=== PATIENT | male | born 1960 | race African-American/Black ===

== ENCOUNTER 2017-06-19 14:46 | Inpatient (IN) | payer MEDICARE, OTHER ==
[2017-06-19] MEDS: METHYLPREDNISOLONE 125 MG INJ IV (15:00)
[2017-06-19] MEDS: LEVALBUTEROL (NEB) 1.25 MG/0.5 ML AMP INH (15:01)
[2017-06-19] MEDS: IPRATROPIUM (NEB) 0.5 MG/2.5 ML AMP INH (15:01)
[2017-06-19 15:45] LABS: ADD MAN DIFF? NO
[2017-06-19 15:49] LABS: BASOPHILS % 0.7 % (0.0-2.0); EOSINOPHILS # 0.3 10^3/ul (0.0-0.5); EOSINOPHILS % 4.2 % (0.0-7.0); HEMOGLOBIN 11.4 g/dl (14.0-18.0); LYMPHOCYTES # 0.6 10^3/ul (0.8-2.9); LYMPHOCYTES % 10.7 % (15.0-51.0); MEAN CORPUSCULAR HEMOGLOBIN 30.6 pg (29.0-33.0); MEAN CORPUSCULAR HGB CONC 32.6 g/dl (32.0-37.0); MEAN CORPUSCULAR VOLUME 93.8 fl (82.0-101.0); MEAN PLATELET VOLUME 12.3 fl (7.4-10.4); MONOCYTE # 0.4 10^3/ul (0.3-0.9); MONOCYTES % 7.2 % (0.0-11.0); NEUTROPHIL # 4.6 10^3/ul (1.6-7.5); PLATELET COUNT 130 10^3/UL (140-415); RED BLOOD COUNT 3.73 10^6/ul (4.70-6.10); RED CELL DISTRIBUTION WIDTH 18.5 % (11.5-14.5)
[2017-06-19 16:06] LABS: INR 1.04; PROTIME 13.7 Sec (11.9-14.9); PT RATIO 1.1
[2017-06-19 16:07] LABS: PARTIAL THROMBOPLASTIN TIME 38.2 Sec (25.0-35.0)
[2017-06-19 16:59] LABS: LACTIC ACID 1.2 mmol/L (0.5-2.0)
[2017-06-19 17:03] LABS: ALANINE AMINOTRANSFERASE 35 IU/L (13-69); ALBUMIN/GLOBULIN RATIO 1.11; ALKALINE PHOSPHATASE 96 IU/L (42-121); ANION GAP 25 (8-16); ASPARTATE AMINO TRANSFERASE 21 IU/L (15-46); BILIRUBIN,INDIRECT 0.2 mg/dl (0-1.1); BILIRUBIN,TOTAL 0.2 mg/dl (0.2-1.3); BLOOD UREA NITROGEN 54 mg/dl (7-20); CALCIUM 7.9 mg/dl (8.4-10.2); CARBON DIOXIDE 24 mmol/L (21-31); CHLORIDE 97 mmol/L (97-110); CREATININE 11.13 mg/dl (0.61-1.24); GLUCOSE 92 mg/dl (70-220); POTASSIUM 5.1 mmol/L (3.5-5.1); SODIUM 141 mmol/L (135-144); TOTAL PROTEIN 7.6 g/dl (6.1-8.1)
[2017-06-19 17:12] LABS: TROPONIN-I 0.081 ng/ml (0.00-0.12)
[2017-06-19] MEDS ORDERED: GLUCOSE GEL 15 GRAM TUBE BUCCAL (19:30)
[2017-06-19] MEDS ORDERED: DEXTROSE 50% 50 ML SYRINGE IV ×2 (19:30)
[2017-06-19] MEDS ORDERED: GLUCOSE GEL 15 GRAM TUBE PO ×2 (19:30)
[2017-06-19] MEDS ORDERED: GLUCAGON 1 MG INJ IM (19:30)
[2017-06-19] MEDS: hydrALAzine 20 MG INJ IV (19:33)
[2017-06-19 19:34] LABS: LACTIC ACID 1.7 mmol/L (0.5-2.0)
[2017-06-19] MEDS: HYDROCODONE/APAP (10/325) TAB PO (19:45)
[2017-06-19] MEDS ORDERED: INSULIN GLARGINE [LANtus] 3 ML PEN SC (21:00)
[2017-06-19] MEDS: LEVALBUTEROL (NEB) 0.63 MG/3 ML AMP HHN (21:10)
[2017-06-19 21:44] LABS: LACTIC ACID 2.3 mmol/L (0.5-2.0)
[2017-06-19] MEDS: QUETIAPINE 100 MG TAB PO (22:07)
[2017-06-19] MEDS: MIRTAZAPINE 15 MG TAB PO (22:07)
[2017-06-19] MEDS: GABAPENTIN 100 MG CAP PO (22:07)
[2017-06-19] MEDS: INSULIN GLARGINE [LANtus] 3 ML PEN SC (23:38)
[2017-06-20 00:58] LABS: HEPATITIS B SURFACE ANTIGEN NEGATIVE (NEGATIVE)
[2017-06-20] MEDS: ACCU-CHEK XX (02:00)
[2017-06-20] MEDS: HEPARIN 1000 UNITS/ML 10 ML INJ CATHETER (04:43)
[2017-06-20] MEDS: LEVOTHYROXINE 150 MCG TAB PO (06:39)
[2017-06-20] MEDS: INSULIN ASPART [NOVOLOG] 3 ML PEN SC ×4 (07:55→20:58)
[2017-06-20] MEDS: GABAPENTIN 100 MG CAP PO ×3 (10:08→20:54)
[2017-06-20] MEDS: traMADol 50 MG TAB PO (10:09)
[2017-06-20] MEDS: HYDROCODONE/APAP (5/325) TAB PO (15:45)
[2017-06-20] MEDS: QUETIAPINE 100 MG TAB PO (20:54)
[2017-06-20] MEDS: MIRTAZAPINE 15 MG TAB PO (20:54)
[2017-06-20] MEDS: INSULIN GLARGINE [LANtus] 3 ML PEN SC (21:10)
[2017-06-20] MEDS: HYDROCODONE/APAP (10/325) TAB PO (22:29)
[2017-06-20] MEDS: ZOLPIDEM 5 MG TAB PO (23:00)
[2017-06-21] MEDS: ACCU-CHEK XX (02:00)
[2017-06-21] MEDS: LEVOTHYROXINE 150 MCG TAB PO (06:08)
[2017-06-21] MEDS: INSULIN ASPART [NOVOLOG] 3 ML PEN SC ×2 (07:55→11:50)
[2017-06-21] MEDS: QUETIAPINE 100 MG TAB PO (09:08)
[2017-06-21] MEDS: GABAPENTIN 100 MG CAP PO ×2 (09:09→14:15)
[2017-06-21] MEDS: HYDROCODONE/APAP (10/325) TAB PO (14:15)
== END 2017-06-21 17:18 | disposition home or self-care (01) | DRG 291 ==
LOC: TEL 20:14 → E/R 14:46 → TEL 18:07
PROVIDERS: Internal Medicine
PROC: 5A1D70Z Performance of Urinary Filtration, Intermittent, Less than 6 Hours Per Day (ICD-10-PCS; principal; 2017-06-19)
DX: I13.2 Hypertensive heart and chronic kidney disease with heart failure and with stage 5 chronic kidney disease, or end stage renal disease (principal); I50.23 Acute on chronic systolic (congestive) heart failure; J96.21 Acute and chronic respiratory failure with hypoxia; N18.6 End stage renal disease; J44.1 Chronic obstructive pulmonary disease with (acute) exacerbation; E11.22 Type 2 diabetes mellitus with diabetic chronic kidney disease; I42.9 Cardiomyopathy, unspecified; E11.40 Type 2 diabetes mellitus with diabetic neuropathy, unspecified; Z79.4 Long term (current) use of insulin; Z99.2 Dependence on renal dialysis; I25.10 Atherosclerotic heart disease of native coronary artery without angina pectoris; D64.9 Anemia, unspecified; E11.649 Type 2 diabetes mellitus with hypoglycemia without coma; Z91.15 Patient's noncompliance with renal dialysis
CPT/HCPCS: 36415; 71045; 80053; 82962; 83605; 84484; 85025; 85610; 85730; 87040; 87340; 90935; 93005; 94640; 94644; 96374; 96375; 99291-25

== ENCOUNTER 2017-08-20 15:00 | Observation (INO) | payer MEDICARE, OTHER ==
[2017-08-20] MEDS: ASPIRIN 81 MG TAB PO (16:21)
[2017-08-20] MEDS: FUROSEMIDE 40 MG INJ IV (16:21)
[2017-08-20] MEDS: NITROGLYCERIN 2% 1 GM OINT PKT TD (16:22)
[2017-08-20] MEDS ORDERED: NITROGLYCERIN (SL) 0.4 MG TAB SL ×2 (16:30→19:00)
[2017-08-20 16:46] LABS: ADD MAN DIFF? NO
[2017-08-20 17:41] LABS: ANION GAP 27 (8-16); BLOOD UREA NITROGEN 67 mg/dl (7-20); CALCIUM 7.4 mg/dl (8.4-10.2); CARBON DIOXIDE 22 mmol/L (21-31); CHLORIDE 95 mmol/L (97-110); GLUCOSE 88 mg/dl (70-220); POTASSIUM 5.1 mmol/L (3.5-5.1); SODIUM 139 mmol/L (135-144)
[2017-08-20 17:48] LABS: CREATININE 13.82 mg/dl (0.61-1.24)
[2017-08-20 17:53] LABS: TROPONIN-I 0.032 ng/ml (0.00-0.12)
[2017-08-20 18:13] LABS: WHITE BLOOD COUNT 5.2 10^3/ul (4.8-10.8)
[2017-08-20 18:13] LABS: ABNORMAL IP MESSAGE 1; BASOPHILS % 0.6 % (0.0-2.0); EOSINOPHILS # 0.2 10^3/ul (0.0-0.5); EOSINOPHILS % 4.2 % (0.0-7.0); HEMATOCRIT 26.4 % (42.0-52.0); HEMOGLOBIN 8.5 g/dl (14.0-18.0); LYMPHOCYTES # 0.5 10^3/ul (0.8-2.9); LYMPHOCYTES % 8.8 % (15.0-51.0); MEAN CORPUSCULAR HEMOGLOBIN 29.1 pg (29.0-33.0); MEAN CORPUSCULAR HGB CONC 32.2 g/dl (32.0-37.0); MEAN CORPUSCULAR VOLUME 90.4 fl (82.0-101.0); MEAN PLATELET VOLUME 11.2 fl (7.4-10.4); MONOCYTE # 0.3 10^3/ul (0.3-0.9); MONOCYTES % 6.5 % (0.0-11.0); NEUTROPHIL # 4.2 10^3/ul (1.6-7.5); NEUTROPHILS % 79.5 % (39.0-77.0); PLATELET COUNT 182 10^3/UL (140-415); POSITIVE DIFF @See below; RED BLOOD COUNT 2.92 10^6/ul (4.70-6.10); RED CELL DISTRIBUTION WIDTH 17.2 % (11.5-14.5)
[2017-08-20] MEDS ORDERED: ACETAMINOPHEN 325 MG TAB PO ×2 (18:30→19:00)
[2017-08-20] MEDS ORDERED: ONDANSETRON 4 MG INJ IV ×2 (18:30→19:00)
[2017-08-20] MEDS ORDERED: DIPHENHYDRAMINE 50 MG CAP PO (19:00)
[2017-08-20] MEDS ORDERED: MAGNESIUM HYDROXIDE 30ML CUP PO (19:00)
[2017-08-20] MEDS ORDERED: LORAZEPAM 2 MG INJ IV (19:00)
[2017-08-20] MEDS ORDERED: NA PHOSPHATE/BIPHOS 133 ML ENEMA PR (19:00)
[2017-08-20] MEDS ORDERED: DOCUSATE SODIUM 100 MG CAP PO (19:00)
[2017-08-20] MEDS ORDERED: NACL 0.9% 3 ML SYG IV (19:00)
[2017-08-20] MEDS ORDERED: hydrALAzine 20 MG INJ IV (19:00)
[2017-08-20 19:09] LABS: INR 1.33; PROTIME 16.7 Sec (11.9-14.9); PT RATIO 1.3
[2017-08-20 19:10] LABS: PARTIAL THROMBOPLASTIN TIME 52.1 Sec (25.0-35.0)
[2017-08-20] MEDS: ONDANSETRON 4 MG INJ IV (19:25)
[2017-08-20] MEDS: morphine 4 MG/ML VIAL IV (19:26)
[2017-08-20] MEDS ORDERED: GLUCOSE GEL 15 GRAM TUBE BUCCAL (19:30)
[2017-08-20] MEDS ORDERED: DEXTROSE 50% 50 ML SYRINGE IV ×2 (19:30)
[2017-08-20] MEDS ORDERED: GLUCOSE GEL 15 GRAM TUBE PO ×2 (19:30)
[2017-08-20] MEDS ORDERED: GLUCAGON 1 MG INJ IM (19:30)
[2017-08-20 19:34] LABS: FREE T4 (FREE THYROXINE) 0.57 ng/dl (0.64-1.79)
[2017-08-20] MEDS: morphine 2 MG INJ IV (22:14)
[2017-08-20] MEDS ORDERED: APIXABAN 5 MG TABLET PO (23:00)
[2017-08-20] MEDS: HEPARIN 5,000 UNIT/0.5 ML VIAL SC (23:00)
[2017-08-20] MEDS ORDERED: ALBUMIN HUMAN 25% 100 ML IV (23:00)
[2017-08-20] MEDS: MIRTAZAPINE 15 MG TAB PO (23:00)
[2017-08-20] MEDS: QUETIAPINE 100 MG TAB PO (23:00)
[2017-08-21 00:48] LABS: CREATINE KINASE 163 IU/L (23-200)
[2017-08-21] MEDS: INSULIN ASPART [NOVOLOG] 3 ML PEN SC ×6 (00:48→20:22)
[2017-08-21 01:02] LABS: CK INDEX 1.7; TROPONIN-I 0.051 ng/ml (0.00-0.12)
[2017-08-21 01:04] LABS: CK-MB 2.82 ng/ml (0.0-2.4)
[2017-08-21 01:20] LABS: HEPATITIS B SURFACE ANTIGEN NEGATIVE (NEGATIVE)
[2017-08-21] MEDS: ACCU-CHEK XX (02:00)
[2017-08-21] MEDS: HEPARIN 1000 UNITS/ML 10 ML INJ CATHETER (02:14)
[2017-08-21] MEDS: LEVOTHYROXINE 88 MCG TAB PO (08:08)
[2017-08-21] MEDS: PANTOPRAZOLE (EC) 40 MG TAB PO (08:09)
[2017-08-21] MEDS: FUROSEMIDE 40 MG INJ IV (08:45)
[2017-08-21] MEDS: CINACALCET 30 MG TAB PO (08:45)
[2017-08-21] MEDS: QUETIAPINE 25 MG TAB PO (08:46)
[2017-08-21] MEDS: ASPIRIN 81 MG TAB PO (08:46)
[2017-08-21] MEDS: CHOLECALCIFEROL 1,000 UNIT TAB PO (08:46)
[2017-08-21] MEDS: HEPARIN 5,000 UNIT/0.5 ML VIAL SC ×2 (08:48→20:22)
[2017-08-21 09:37] LABS: ADD MAN DIFF? NO
[2017-08-21 09:46] LABS: WHITE BLOOD COUNT 4.6 10^3/ul (4.8-10.8)
[2017-08-21 09:46] LABS: ABNORMAL IP MESSAGE 1; BASOPHILS % 0.9 % (0.0-2.0); EOSINOPHILS # 0.3 10^3/ul (0.0-0.5); EOSINOPHILS % 5.5 % (0.0-7.0); HEMATOCRIT 25.4 % (42.0-52.0); HEMOGLOBIN 8.1 g/dl (14.0-18.0); LYMPHOCYTES # 0.6 10^3/ul (0.8-2.9); LYMPHOCYTES % 12.1 % (15.0-51.0); MEAN CORPUSCULAR HEMOGLOBIN 28.9 pg (29.0-33.0); MEAN CORPUSCULAR HGB CONC 31.9 g/dl (32.0-37.0); MEAN CORPUSCULAR VOLUME 90.7 fl (82.0-101.0); MEAN PLATELET VOLUME 11.7 fl (7.4-10.4); MONOCYTE # 0.4 10^3/ul (0.3-0.9); MONOCYTES % 9.2 % (0.0-11.0); NEUTROPHIL # 3.3 10^3/ul (1.6-7.5); NEUTROPHILS % 72.1 % (39.0-77.0); PLATELET COUNT 156 10^3/UL (140-415); POSITIVE DIFF @See below; RED CELL DISTRIBUTION WIDTH 17.2 % (11.5-14.5)
[2017-08-21 09:57] LABS: HEMOGLOBIN A1C 5.7 % (0-5.9)
[2017-08-21 10:08] LABS: CREATINE KINASE 142 IU/L (23-200)
[2017-08-21 10:16] LABS: CK INDEX 1.6; TROPONIN-I 0.064 ng/ml (0.00-0.12)
[2017-08-21 10:17] LABS: CK-MB 2.33 ng/ml (0.0-2.4)
[2017-08-21 10:21] LABS: CHOLESTEROL 102 mg/dl (100-200)
[2017-08-21 10:21] LABS: CHOL/HDL RATIO 2.9 RATIO; HDL CHOLESTEROL 35 mg/dl (28-71); LDL CHOLESTEROL,CALCULATED 56 mg/dl; TRIGLYCERIDES 57 mg/dl (0-149)
[2017-08-21 11:00] LABS: ANION GAP 24 (8-16); BLOOD UREA NITROGEN 48 mg/dl (7-20); CALCIUM 7.2 mg/dl (8.4-10.2); CARBON DIOXIDE 21 mmol/L (21-31); CHLORIDE 101 mmol/L (97-110); CREATININE 10.33 mg/dl (0.61-1.24); GLUCOSE 75 mg/dl (70-220); MAGNESIUM 1.7 mg/dl (1.7-2.5); PHOSPHORUS 5.8 mg/dl (2.5-4.9); POTASSIUM 4.7 mmol/L (3.5-5.1); SODIUM 141 mmol/L (135-144)
[2017-08-21] MEDS: HYDROCODONE/APAP (5/325) TAB PO ×3 (14:53→15:02)
[2017-08-21] MEDS: morphine 2 MG INJ IV (15:21)
[2017-08-21] MEDS: QUETIAPINE 100 MG TAB PO (20:07)
[2017-08-21] MEDS: MIRTAZAPINE 15 MG TAB PO (20:07)
[2017-08-21] MEDS: morphine LIQ (10 MG/5 ML) CUP PO (20:08)
[2017-08-21] MEDS ORDERED: ALBUTEROL/IPRATROPIUM (NEB) 3 ML AMP HHN (21:30)
[2017-08-21] MEDS: ALBUTEROL/IPRATROPIUM (NEB) 3 ML AMP HHN (21:52)
[2017-08-21] MEDS: traMADol 50 MG TAB PO (22:11)
[2017-08-21] MEDS: ZOLPIDEM 5 MG TAB PO (22:11)
[2017-08-22] MEDS: morphine LIQ (10 MG/5 ML) CUP PO ×2 (00:03→08:28)
[2017-08-22] MEDS: ACCU-CHEK XX (02:00)
[2017-08-22] MEDS: INSULIN ASPART [NOVOLOG] 3 ML PEN SC ×4 (07:30→21:00)
[2017-08-22] MEDS: LEVOTHYROXINE 88 MCG TAB PO (07:40)
[2017-08-22] MEDS: PANTOPRAZOLE (EC) 40 MG TAB PO (07:40)
[2017-08-22] MEDS: QUETIAPINE 25 MG TAB PO (08:23)
[2017-08-22] MEDS: CINACALCET 30 MG TAB PO (08:24)
[2017-08-22] MEDS: CHOLECALCIFEROL 1,000 UNIT TAB PO (08:24)
[2017-08-22] MEDS: ASPIRIN 81 MG TAB PO (08:25)
[2017-08-22] MEDS: FUROSEMIDE 40 MG INJ IV (08:26)
[2017-08-22] MEDS: HEPARIN 5,000 UNIT/0.5 ML VIAL SC ×2 (08:27→21:15)
[2017-08-22 08:56] LABS: ADD MAN DIFF? NO
[2017-08-22 08:59] LABS: BASOPHILS % 0.7 % (0.0-2.0); EOSINOPHILS # 0.3 10^3/ul (0.0-0.5); EOSINOPHILS % 7.8 % (0.0-7.0); HEMATOCRIT 23.9 % (42.0-52.0); HEMOGLOBIN 7.4 g/dl (14.0-18.0); LYMPHOCYTES # 0.7 10^3/ul (0.8-2.9); LYMPHOCYTES % 16.5 % (15.0-51.0); MEAN CORPUSCULAR HEMOGLOBIN 28.5 pg (29.0-33.0); MEAN CORPUSCULAR VOLUME 91.9 fl (82.0-101.0); MEAN PLATELET VOLUME 9.9 fl (7.4-10.4); MONOCYTE # 0.4 10^3/ul (0.3-0.9); MONOCYTES % 9.5 % (0.0-11.0); NEUTROPHIL # 2.7 10^3/ul (1.6-7.5); PLATELET COUNT 133 10^3/UL (140-415); RED CELL DISTRIBUTION WIDTH 17.3 % (11.5-14.5)
[2017-08-22 08:59] LABS: WHITE BLOOD COUNT 4.1 10^3/ul (4.8-10.8)
[2017-08-22 09:20] LABS: ANION GAP 22 (8-16); BLOOD UREA NITROGEN 54 mg/dl (7-20); CALCIUM 6.8 mg/dl (8.4-10.2); CARBON DIOXIDE 23 mmol/L (21-31); CHLORIDE 98 mmol/L (97-110); CREATININE 11.56 mg/dl (0.61-1.24); GLUCOSE 76 mg/dl (70-220); POTASSIUM 5.2 mmol/L (3.5-5.1); SODIUM 138 mmol/L (135-144)
[2017-08-22] MEDS: HEPARIN 1000 UNITS/ML 10 ML INJ CATHETER (15:58)
[2017-08-22 17:01] LABS: IMMEDIATE SPIN CROSSMATCH 1 1
[2017-08-22] MEDS: QUETIAPINE 100 MG TAB PO (21:00)
[2017-08-22] MEDS: MIRTAZAPINE 15 MG TAB PO (21:16)
== END 2017-08-22 23:00 | disposition home or self-care (01) ==
LOC: E/R 15:00 → MS4 18:16
DX: I13.2 Hypertensive heart and chronic kidney disease with heart failure and with stage 5 chronic kidney disease, or end stage renal disease (principal); E11.22 Type 2 diabetes mellitus with diabetic chronic kidney disease; N18.6 End stage renal disease; I50.23 Acute on chronic systolic (congestive) heart failure; Z99.2 Dependence on renal dialysis; Z91.15 Patient's noncompliance with renal dialysis; D63.1 Anemia in chronic kidney disease; E03.9 Hypothyroidism, unspecified
CPT/HCPCS: 36415; 36430; 71045; 80048; 80061; 82550; 82553; 82962; 83036; 83605; 83735; 84100; 84439; 84443; 84484; 85025; 85610; 85730; 86850; 86900; 86901; 86920; 87040; 87340; 90935; 93005; 93306; 94664; 96374; 96375; 97161; 99285-25; G0378

== ENCOUNTER 2017-09-23 20:58 | Inpatient (IN) | payer MEDICARE, OTHER ==
[2017-09-23] MEDS: ASPIRIN 325 MG TAB PO (22:20)
[2017-09-23] MEDS: predniSONE 20 MG TAB PO (22:20)
[2017-09-23] MEDS: KETOROLAC 30 MG INJ IV (22:20)
[2017-09-23] MEDS: SOD CHLORIDE 0.9% 500 ML IV (22:20)
[2017-09-23 22:23] LABS: ADD MAN DIFF? NO
[2017-09-23 22:28] LABS: BASOPHILS % 0.3 % (0.0-2.0); EOSINOPHILS # 0.3 10^3/ul (0.0-0.5); EOSINOPHILS % 3.3 % (0.0-7.0); HEMATOCRIT 24.4 % (42.0-52.0); HEMOGLOBIN 7.8 g/dl (14.0-18.0); LYMPHOCYTES # 0.6 10^3/ul (0.8-2.9); LYMPHOCYTES % 6.6 % (15.0-51.0); MEAN CORPUSCULAR HEMOGLOBIN 28.8 pg (29.0-33.0); MEAN PLATELET VOLUME 11.4 fl (7.4-10.4); MONOCYTE # 0.5 10^3/ul (0.3-0.9); MONOCYTES % 5.4 % (0.0-11.0); NEUTROPHIL # 7.8 10^3/ul (1.6-7.5); NEUTROPHILS % 84.1 % (39.0-77.0); PLATELET COUNT 197 10^3/UL (140-415); RED BLOOD COUNT 2.71 10^6/ul (4.70-6.10); RED CELL DISTRIBUTION WIDTH 17.2 % (11.5-14.5)
[2017-09-23 22:28] LABS: WHITE BLOOD COUNT 9.3 10^3/ul (4.8-10.8)
[2017-09-23 22:44] LABS: ANION GAP 21 (8-16); BLOOD UREA NITROGEN 61 mg/dl (7-20); CALCIUM 7.8 mg/dl (8.4-10.2); CARBON DIOXIDE 26 mmol/L (21-31); CHLORIDE 100 mmol/L (97-110); CREATININE 13.77 mg/dl (0.61-1.24); GLUCOSE 122 mg/dl (70-220); POTASSIUM 4.4 mmol/L (3.5-5.1); SODIUM 143 mmol/L (135-144)
[2017-09-23 22:57] LABS: B-TYPE NATRIURETIC PEPTIDE 23300 PG/ML (0-125)
[2017-09-23] MEDS: IPRATROPIUM (NEB) 0.5 MG/2.5 ML AMP HHN (23:13)
[2017-09-23] MEDS: ALBUTEROL 0.083% (NEB) 2.5 MG/3 ML AMP HHN (23:13)
[2017-09-24] MEDS ORDERED: NACL 0.9% 3 ML SYG IV (01:30)
[2017-09-24] MEDS ORDERED: ACETAMINOPHEN 325 MG TAB PO (01:30)
[2017-09-24] MEDS ORDERED: NITROGLYCERIN (SL) 0.4 MG TAB SL (01:30)
[2017-09-24] MEDS: morphine 2 MG INJ IV ×4 (05:15→20:52)
[2017-09-24 07:52] LABS: ABNORMAL IP MESSAGE 1; ADD MAN DIFF? NO; BASOPHILS % 0.2 % (0.0-2.0); EOSINOPHILS % 0.1 % (0.0-7.0); HEMATOCRIT 25.3 % (42.0-52.0); HEMOGLOBIN 8.1 g/dl (14.0-18.0); LYMPHOCYTES # 0.2 10^3/ul (0.8-2.9); LYMPHOCYTES % 2.1 % (15.0-51.0); MEAN CORPUSCULAR HEMOGLOBIN 28.7 pg (29.0-33.0); MEAN CORPUSCULAR VOLUME 89.7 fl (82.0-101.0); MONOCYTE # 0.1 10^3/ul (0.3-0.9); MONOCYTES % 0.5 % (0.0-11.0); NEUTROPHIL # 9.1 10^3/ul (1.6-7.5); NEUTROPHILS % 96.7 % (39.0-77.0); PLATELET COUNT 195 10^3/UL (140-415); POSITIVE DIFF @See below; RED BLOOD COUNT 2.82 10^6/ul (4.70-6.10)
[2017-09-24 07:52] LABS: WHITE BLOOD COUNT 9.5 10^3/ul (4.8-10.8)
[2017-09-24 08:17] LABS: ALANINE AMINOTRANSFERASE 13 IU/L (13-69); ALBUMIN 3.5 g/dl (3.3-4.9); ALBUMIN/GLOBULIN RATIO 0.83; ALKALINE PHOSPHATASE 110 IU/L (42-121); ANION GAP 24 (8-16); ASPARTATE AMINO TRANSFERASE 15 IU/L (15-46); BLOOD UREA NITROGEN 65 mg/dl (7-20); CALCIUM 7.7 mg/dl (8.4-10.2); CARBON DIOXIDE 23 mmol/L (21-31); CHLORIDE 101 mmol/L (97-110); GLUCOSE 225 mg/dl (70-220); MAGNESIUM 1.7 mg/dl (1.7-2.5); PHOSPHORUS 5.3 mg/dl (2.5-4.9); POTASSIUM 5.7 mmol/L (3.5-5.1); SODIUM 142 mmol/L (135-144); TOTAL PROTEIN 7.7 g/dl (6.1-8.1)
[2017-09-24 08:35] LABS: CREATININE 13.44 mg/dl (0.61-1.24)
[2017-09-24] MEDS: FERROUS SULFATE (EC) 325 MG TAB PO (09:00)
[2017-09-24] MEDS: APIXABAN 5 MG TABLET PO ×2 (09:00→20:51)
[2017-09-24] MEDS: CINACALCET 30 MG TAB PO (09:00)
[2017-09-24] MEDS: LISINOPRIL 5 MG TAB PO (09:00)
[2017-09-24] MEDS: METOPROLOL (XL) 50 MG TAB PO (09:00)
[2017-09-24] MEDS: ASPIRIN 81 MG TAB PO (09:00)
[2017-09-24 09:04] LABS: IRON 33 ug/dl (35-150)
[2017-09-24 09:14] LABS: % IRON SATURATION 17 % SAT (22-52); TOTAL IRON BINDING CAPACITY 192 ug/dl (241-421)
[2017-09-24] MEDS: QUETIAPINE 25 MG TAB PO ×2 (09:32→20:51)
[2017-09-24] MEDS: SOD CHLORIDE 0.9% 250 ML IV* (10:08)
[2017-09-24] MEDS: QUETIAPINE 100 MG TAB PO (10:29)
[2017-09-24] MEDS: LORAZEPAM 2 MG INJ IV (10:29)
[2017-09-24] MEDS ORDERED: HYDROCODONE/APAP (5/325) TAB NGT (10:30)
[2017-09-24 12:10] LABS: HEPATITIS B SURFACE ANTIGEN NEGATIVE (NEGATIVE)
[2017-09-24] MEDS: HEPARIN 1000 UNITS/ML 10 ML INJ CATHETER (14:38)
[2017-09-24] MEDS: EPOETIN 10000 UNITS/1 ML INJ (ESRD) SC (16:38)
[2017-09-24] MEDS: MIRTAZAPINE 15 MG TAB PO (20:51)
[2017-09-24] MEDS ORDERED: QUETIAPINE 100 MG TAB PO (21:00)
[2017-09-24] MEDS: ALBUTEROL 0.083% (NEB) 2.5 MG/3 ML AMP HHN (22:13)
[2017-09-24] MEDS: ALPRAZOLAM 0.5 MG TAB PO (22:29)
[2017-09-25] MEDS: ZOLPIDEM 5 MG TAB PO
[2017-09-25] MEDS: PANTOPRAZOLE (EC) 40 MG TAB PO (06:39)
[2017-09-25] MEDS: LEVOTHYROXINE 88 MCG TAB PO (06:39)
[2017-09-25 07:33] LABS: ADD MAN DIFF? NO
[2017-09-25 07:35] LABS: BASOPHILS % 0.4 % (0.0-2.0); EOSINOPHILS # 0.3 10^3/ul (0.0-0.5); EOSINOPHILS % 2.9 % (0.0-7.0); HEMATOCRIT 24.5 % (42.0-52.0); HEMOGLOBIN 7.9 g/dl (14.0-18.0); LYMPHOCYTES # 0.8 10^3/ul (0.8-2.9); MEAN CORPUSCULAR HEMOGLOBIN 29.2 pg (29.0-33.0); MEAN CORPUSCULAR HGB CONC 32.2 g/dl (32.0-37.0); MEAN CORPUSCULAR VOLUME 90.4 fl (82.0-101.0); MONOCYTE # 0.6 10^3/ul (0.3-0.9); MONOCYTES % 5.9 % (0.0-11.0); NEUTROPHIL # 8.6 10^3/ul (1.6-7.5); NEUTROPHILS % 82.3 % (39.0-77.0); PLATELET COUNT 180 10^3/UL (140-415); RED BLOOD COUNT 2.71 10^6/ul (4.70-6.10); RED CELL DISTRIBUTION WIDTH 17.2 % (11.5-14.5)
[2017-09-25 07:35] LABS: WHITE BLOOD COUNT 10.4 10^3/ul (4.8-10.8)
[2017-09-25 07:55] LABS: ANION GAP 17 (8-16); BLOOD UREA NITROGEN 52 mg/dl (7-20); CARBON DIOXIDE 28 mmol/L (21-31); CHLORIDE 101 mmol/L (97-110); CREATININE 10.27 mg/dl (0.61-1.24); GLUCOSE 96 mg/dl (70-220); POTASSIUM 4.7 mmol/L (3.5-5.1); SODIUM 141 mmol/L (135-144)
[2017-09-25 08:09] LABS: PHOSPHORUS 4.7 mg/dl (2.5-4.9)
[2017-09-25] MEDS ORDERED: QUETIAPINE 25 MG TAB PO (09:00)
[2017-09-25] MEDS: CINACALCET 30 MG TAB PO (09:00)
[2017-09-25] MEDS: FERROUS SULFATE (EC) 325 MG TAB PO (09:00)
[2017-09-25] MEDS: ASPIRIN 81 MG TAB PO (09:00)
[2017-09-25] MEDS: LISINOPRIL 5 MG TAB PO (09:00)
[2017-09-25] MEDS: APIXABAN 5 MG TABLET PO ×2 (09:00→20:13)
[2017-09-25] MEDS: METOPROLOL (XL) 50 MG TAB PO (09:00)
[2017-09-25] MEDS: morphine 2 MG INJ IV (10:05)
[2017-09-25] MEDS: HYDROmorphONE 0.5 MG/0.5 ML SYG IV ×2 (13:08→19:24)
[2017-09-25] MEDS: QUETIAPINE 100 MG TAB PO (15:13)
[2017-09-25] MEDS: HEPARIN 1000 UNITS/ML 10 ML INJ CATHETER (19:12)
[2017-09-25] MEDS: SOD FERRIC GLUC COMPLX 125 MG in SOD CHLORIDE 0.9% 100 ML IVPB (19:23)
[2017-09-25] MEDS: MIRTAZAPINE 15 MG TAB PO (20:13)
[2017-09-25] MEDS: QUETIAPINE 25 MG TAB PO (20:13)
[2017-09-25] MEDS: ONDANSETRON 4 MG INJ IV (21:48)
[2017-09-26] MEDS: ZOLPIDEM 5 MG TAB PO (00:06)
[2017-09-26] MEDS: HYDROmorphONE 0.5 MG/0.5 ML SYG IV ×3 (01:15→13:13)
[2017-09-26] MEDS: LEVOTHYROXINE 88 MCG TAB PO (06:31)
[2017-09-26] MEDS: PANTOPRAZOLE (EC) 40 MG TAB PO (06:32)
[2017-09-26 07:32] LABS: ANION GAP 15 (8-16); BLOOD UREA NITROGEN 33 mg/dl (7-20); CALCIUM 7.8 mg/dl (8.4-10.2); CARBON DIOXIDE 30 mmol/L (21-31); CHLORIDE 101 mmol/L (97-110); CREATININE 7.34 mg/dl (0.61-1.24); GLUCOSE 92 mg/dl (70-220); POTASSIUM 4.9 mmol/L (3.5-5.1); SODIUM 141 mmol/L (135-144)
[2017-09-26 07:32] LABS: PHOSPHORUS 4.9 mg/dl (2.5-4.9)
[2017-09-26] MEDS: ASPIRIN 81 MG TAB PO (08:51)
[2017-09-26] MEDS: METOPROLOL (XL) 50 MG TAB PO (08:51)
[2017-09-26] MEDS: CINACALCET 30 MG TAB PO (08:51)
[2017-09-26] MEDS: LISINOPRIL 5 MG TAB PO (08:52)
[2017-09-26] MEDS: QUETIAPINE 100 MG TAB PO (08:52)
[2017-09-26] MEDS: APIXABAN 5 MG TABLET PO (08:52)
[2017-09-26] MEDS: FERROUS SULFATE (EC) 325 MG TAB PO (08:55)
[2017-09-26] MEDS: EPOETIN 10000 UNITS/1 ML INJ (ESRD) SC (16:28)
[2017-09-26] MEDS: SOD FERRIC GLUC COMPLX 125 MG in SOD CHLORIDE 0.9% 100 ML IVPB (16:28)
== END 2017-09-26 19:30 | disposition home or self-care (01) | DRG 291 ==
LOC: TEL 09-24 00:55 → E/R 20:58
DX: I13.2 Hypertensive heart and chronic kidney disease with heart failure and with stage 5 chronic kidney disease, or end stage renal disease (principal); N18.6 End stage renal disease; I50.43 Acute on chronic combined systolic (congestive) and diastolic (congestive) heart failure; J96.00 Acute respiratory failure, unspecified whether with hypoxia or hypercapnia; J44.1 Chronic obstructive pulmonary disease with (acute) exacerbation; E11.22 Type 2 diabetes mellitus with diabetic chronic kidney disease; Z99.2 Dependence on renal dialysis; Z91.15 Patient's noncompliance with renal dialysis; F17.210 Nicotine dependence, cigarettes, uncomplicated; F41.9 Anxiety disorder, unspecified; D63.1 Anemia in chronic kidney disease; I25.10 Atherosclerotic heart disease of native coronary artery without angina pectoris; D50.9 Iron deficiency anemia, unspecified; E11.40 Type 2 diabetes mellitus with diabetic neuropathy, unspecified; E03.9 Hypothyroidism, unspecified; M25.562 Pain in left knee; E87.5 Hyperkalemia; I42.9 Cardiomyopathy, unspecified; Z79.82 Long term (current) use of aspirin; Z86.718 Personal history of other venous thrombosis and embolism; Z91.81 History of falling
CPT/HCPCS: 36415; 71045; 73562; 73610-RT; 80048; 80053; 82728; 83540; 83735; 83880; 84100; 84484; 85025; 86850; 86900; 86901; 87081; 87340; 90935; 93005; 94644; 94664; 96374; 99291-25

== ENCOUNTER 2017-10-13 08:42 | Emergency (ER) | payer MEDICARE, OTHER ==
[2017-10-13] MEDS: ALBUTEROL 0.5% (NEB) 2.5 MG/0.5 ML AMP INH (09:03)
[2017-10-13] MEDS: IPRATROPIUM (NEB) 0.5 MG/2.5 ML AMP INH (09:03)
[2017-10-13 09:10] LABS: ADD MAN DIFF? NO
[2017-10-13 09:12] LABS: WHITE BLOOD COUNT 8.2 10^3/ul (4.8-10.8)
[2017-10-13 09:12] LABS: BASOPHIL # 0.1 10^3/ul (0.0-0.1); BASOPHILS % 0.7 % (0.0-2.0); EOSINOPHILS # 0.3 10^3/ul (0.0-0.5); EOSINOPHILS % 3.8 % (0.0-7.0); HEMATOCRIT 29.9 % (42.0-52.0); LYMPHOCYTES # 0.9 10^3/ul (0.8-2.9); LYMPHOCYTES % 11.2 % (15.0-51.0); MEAN CORPUSCULAR HEMOGLOBIN 28.8 pg (29.0-33.0); MEAN CORPUSCULAR HGB CONC 30.1 g/dl (32.0-37.0); MEAN CORPUSCULAR VOLUME 95.8 fl (82.0-101.0); MEAN PLATELET VOLUME 12.4 fl (7.4-10.4); MONOCYTE # 0.6 10^3/ul (0.3-0.9); MONOCYTES % 7.4 % (0.0-11.0); NEUTROPHIL # 6.3 10^3/ul (1.6-7.5); NEUTROPHILS % 76.5 % (39.0-77.0); PLATELET COUNT 160 10^3/UL (140-415); RED BLOOD COUNT 3.12 10^6/ul (4.70-6.10); RED CELL DISTRIBUTION WIDTH 16.7 % (11.5-14.5)
[2017-10-13] MEDS: METHYLPREDNISOLONE 125 MG INJ IV (09:12)
[2017-10-13 09:30] LABS: ANION GAP 23 (8-16); BLOOD UREA NITROGEN 36 mg/dl (7-20); CALCIUM 7.3 mg/dl (8.4-10.2); CARBON DIOXIDE 25 mmol/L (21-31); CHLORIDE 99 mmol/L (97-110); CREATININE 10.11 mg/dl (0.61-1.24); GLUCOSE 112 mg/dl (70-220); SODIUM 142 mmol/L (135-144)
[2017-10-13 09:42] LABS: TROPONIN-I 0.047 ng/ml (0.000-0.120)
[2017-10-13] MEDS: morphine 4 MG/ML VIAL IV (09:53)
[2017-10-13 10:41] LABS: B-TYPE NATRIURETIC PEPTIDE 24600 PG/ML (0-125)
== END 2017-10-13 10:17 | disposition home or self-care (01) ==
LOC: E/R 08:42
DX: E11.22 Type 2 diabetes mellitus with diabetic chronic kidney disease (principal); N18.6 End stage renal disease; J81.1 Chronic pulmonary edema; J44.9 Chronic obstructive pulmonary disease, unspecified; I50.9 Heart failure, unspecified; F17.210 Nicotine dependence, cigarettes, uncomplicated; I12.0 Hypertensive chronic kidney disease with stage 5 chronic kidney disease or end stage renal disease; Z79.82 Long term (current) use of aspirin; Z99.2 Dependence on renal dialysis
CPT/HCPCS: 71045; 80048; 83880; 84484; 85025; 93005; 94644; 96374; 96375; 99285-25

== ENCOUNTER 2017-10-26 09:32 | Inpatient (IN) | payer MEDICARE, OTHER ==
[2017-10-26] MEDS ORDERED: NITROGLYCERIN (SL) 0.4 MG TAB SL (10:00)
[2017-10-26 10:02] LABS: ADD MAN DIFF? NO
[2017-10-26 10:07] LABS: ABNORMAL IP MESSAGE 1; BASOPHILS % 0.4 % (0.0-2.0); EOSINOPHILS # 0.2 10^3/ul (0.0-0.5); HEMOGLOBIN 7.6 g/dl (14.0-18.0); LYMPHOCYTES # 0.5 10^3/ul (0.8-2.9); LYMPHOCYTES % 7.3 % (15.0-51.0); MEAN CORPUSCULAR HEMOGLOBIN 28.6 pg (29.0-33.0); MEAN CORPUSCULAR HGB CONC 31.7 g/dl (32.0-37.0); MEAN CORPUSCULAR VOLUME 90.2 fl (82.0-101.0); MEAN PLATELET VOLUME 10.5 fl (7.4-10.4); MONOCYTE # 0.4 10^3/ul (0.3-0.9); MONOCYTES % 5.1 % (0.0-11.0); NEUTROPHIL # 5.9 10^3/ul (1.6-7.5); NEUTROPHILS % 83.8 % (39.0-77.0); PLATELET COUNT 141 10^3/UL (140-415); POSITIVE DIFF @See below; RED BLOOD COUNT 2.66 10^6/ul (4.70-6.10); RED CELL DISTRIBUTION WIDTH 16.6 % (11.5-14.5)
[2017-10-26] MEDS: NITROGLYCERIN 2% 1 GM OINT PKT TD (10:16)
[2017-10-26] MEDS: ASPIRIN 81 MG TAB PO (10:16)
[2017-10-26 10:22] LABS: ANION GAP 25 (8-16); BLOOD UREA NITROGEN 66 mg/dl (7-20); CALCIUM 7.8 mg/dl (8.4-10.2); CARBON DIOXIDE 25 mmol/L (21-31); CHLORIDE 97 mmol/L (97-110); GLUCOSE 98 mg/dl (70-220); POTASSIUM 4.9 mmol/L (3.5-5.1); SODIUM 142 mmol/L (135-144)
[2017-10-26 10:28] LABS: CREATININE 14.89 mg/dl (0.61-1.24)
[2017-10-26 10:33] LABS: TROPONIN-I 0.045 ng/ml (0.000-0.120)
[2017-10-26] MEDS: morphine 4 MG/ML VIAL IV ×2 (11:25→13:16)
[2017-10-26] MEDS ORDERED: ACETAMINOPHEN 325 MG TAB PO (13:00)
[2017-10-26] MEDS ORDERED: ONDANSETRON 4 MG INJ IV (13:00)
[2017-10-26] MEDS ORDERED: NACL 0.9% 3 ML SYG IV (15:00)
[2017-10-26] MEDS: morphine (ER) 15 MG TAB PO ×2 (16:59→22:10)
[2017-10-26 17:49] LABS: CREATINE KINASE 129 IU/L (23-200)
[2017-10-26 17:58] LABS: CK INDEX 2.3; CK-MB 3.03 ng/ml (0.0-2.4)
[2017-10-26] MEDS ORDERED: PENDING SANTYL ORDER FOR WOUND CARE XX (18:00)
[2017-10-26 18:02] LABS: TROPONIN-I 0.041 ng/ml (0.000-0.120)
[2017-10-26] MEDS: QUETIAPINE 100 MG TAB PO (21:00)
[2017-10-26] MEDS: HEPARIN 5,000 UNIT/0.5 ML VIAL SC (21:00)
[2017-10-26] MEDS: MIRTAZAPINE 15 MG TAB PO (21:00)
[2017-10-26] MEDS ORDERED: ALBUMIN HUMAN 25% 100 ML IV (21:30)
[2017-10-26] MEDS ORDERED: SODIUM CHLORIDE 0.9% 1L BAG IV* (21:30)
[2017-10-26 22:13] LABS: HEPATITIS B SURFACE ANTIGEN NEGATIVE (NEGATIVE)
[2017-10-26 23:17] LABS: CREATINE KINASE 133 IU/L (23-200)
[2017-10-26 23:31] LABS: CK INDEX 2.4
[2017-10-26 23:36] LABS: CK-MB 3.24 ng/ml (0.0-2.4)
[2017-10-27] MEDS: HEPARIN 1000 UNITS/ML 10 ML INJ CATHETER (00:43)
[2017-10-27 06:09] LABS: ADD MAN DIFF? NO
[2017-10-27 06:39] LABS: IRON 40 ug/dl (35-150)
[2017-10-27 06:49] LABS: % IRON SATURATION 23 % SAT (22-52); TOTAL IRON BINDING CAPACITY 177 ug/dl (241-421)
[2017-10-27 06:52] LABS: ALANINE AMINOTRANSFERASE 17 IU/L (13-69); ALBUMIN 3.3 g/dl (3.3-4.9); ALKALINE PHOSPHATASE 77 IU/L (42-121); ANION GAP 17 (8-16); ASPARTATE AMINO TRANSFERASE 11 IU/L (15-46); BLOOD UREA NITROGEN 40 mg/dl (7-20); CALCIUM 7.7 mg/dl (8.4-10.2); CARBON DIOXIDE 30 mmol/L (21-31); CHLORIDE 102 mmol/L (97-110); CREATININE 9.79 mg/dl (0.61-1.24); GLUCOSE 94 mg/dl (70-220); POTASSIUM 4.6 mmol/L (3.5-5.1); SODIUM 144 mmol/L (135-144); TOTAL PROTEIN 7.4 g/dl (6.1-8.1)
[2017-10-27 07:00] LABS: HEMOGLOBIN A1C 5.7 % (0-5.9)
[2017-10-27 07:55] LABS: ABNORMAL IP MESSAGE 1; BASOPHILS % 0.5 % (0.0-2.0); EOSINOPHILS # 0.3 10^3/ul (0.0-0.5); EOSINOPHILS % 5.7 % (0.0-7.0); HEMATOCRIT 24.8 % (42.0-52.0); HEMOGLOBIN 7.8 g/dl (14.0-18.0); LYMPHOCYTES # 0.5 10^3/ul (0.8-2.9); LYMPHOCYTES % 8.7 % (15.0-51.0); MEAN CORPUSCULAR HEMOGLOBIN 29.1 pg (29.0-33.0); MEAN CORPUSCULAR HGB CONC 31.5 g/dl (32.0-37.0); MEAN CORPUSCULAR VOLUME 92.5 fl (82.0-101.0); MEAN PLATELET VOLUME 11.4 fl (7.4-10.4); MONOCYTE # 0.5 10^3/ul (0.3-0.9); MONOCYTES % 7.6 % (0.0-11.0); NEUTROPHIL # 4.6 10^3/ul (1.6-7.5); NEUTROPHILS % 77.2 % (39.0-77.0); PLATELET COUNT 152 10^3/UL (140-415); POSITIVE DIFF @See below; RED BLOOD COUNT 2.68 10^6/ul (4.70-6.10); RED CELL DISTRIBUTION WIDTH 16.7 % (11.5-14.5)
[2017-10-27] MEDS: HYDROCODONE/APAP (5/325) TAB PO ×2 (07:59→13:45)
[2017-10-27] MEDS: LEVOTHYROXINE 88 MCG TAB PO (07:59)
[2017-10-27] MEDS: morphine (ER) 15 MG TAB PO (07:59)
[2017-10-27] MEDS: LISINOPRIL 5 MG TAB PO (08:13)
[2017-10-27] MEDS: CHOLECALCIFEROL 1,000 UNIT TAB PO (08:13)
[2017-10-27] MEDS: ASPIRIN 81 MG TAB PO (08:13)
[2017-10-27] MEDS: CINACALCET 30 MG TAB PO (08:14)
[2017-10-27] MEDS: METOPROLOL (XL) 50 MG TAB PO (08:14)
[2017-10-27] MEDS: HEPARIN 5,000 UNIT/0.5 ML VIAL SC ×2 (08:18→21:06)
[2017-10-27] MEDS: morphine 2 MG INJ IV (12:05)
[2017-10-27] MEDS: traMADol 50 MG TAB PO (17:36)
[2017-10-27] MEDS: MIRTAZAPINE 15 MG TAB PO (21:05)
[2017-10-27] MEDS: QUETIAPINE 100 MG TAB PO (21:05)
[2017-10-27] MEDS: ONDANSETRON 4 MG INJ IV (21:05)
[2017-10-28] MEDS: LEVOTHYROXINE 88 MCG TAB PO (08:41)
[2017-10-28] MEDS: CINACALCET 30 MG TAB PO (08:41)
[2017-10-28] MEDS: METOPROLOL (XL) 50 MG TAB PO (08:42)
[2017-10-28] MEDS: CHOLECALCIFEROL 1,000 UNIT TAB PO (08:42)
[2017-10-28] MEDS: LISINOPRIL 5 MG TAB PO (08:42)
[2017-10-28] MEDS: ASPIRIN 81 MG TAB PO (08:43)
[2017-10-28] MEDS: morphine (ER) 15 MG TAB PO ×2 (08:43→20:50)
[2017-10-28] MEDS: HEPARIN 5,000 UNIT/0.5 ML VIAL SC ×2 (08:50→20:44)
[2017-10-28] MEDS: ONDANSETRON 4 MG INJ IV (13:58)
[2017-10-28 18:52] LABS: HEPATITIS B SURFACE ANTIBODY POSITIVE (NEGATIVE)
[2017-10-28] MEDS: HEPARIN 1000 UNITS/ML 10 ML INJ CATHETER (20:18)
[2017-10-28] MEDS: QUETIAPINE 100 MG TAB PO (20:49)
[2017-10-28] MEDS: MIRTAZAPINE 15 MG TAB PO (20:49)
[2017-10-29] MEDS ORDERED: ZOLPIDEM 5 MG TAB PO ×2 (02:13→23:30)
[2017-10-29] MEDS: ZOLPIDEM 5 MG TAB PO ×2 (02:22→23:40)
[2017-10-29] MEDS: CINACALCET 30 MG TAB PO (08:35)
[2017-10-29] MEDS: ASPIRIN 81 MG TAB PO (08:35)
[2017-10-29] MEDS: LEVOTHYROXINE 88 MCG TAB PO (08:35)
[2017-10-29] MEDS: METOPROLOL (XL) 50 MG TAB PO (08:36)
[2017-10-29] MEDS: CHOLECALCIFEROL 1,000 UNIT TAB PO (08:36)
[2017-10-29] MEDS: LISINOPRIL 5 MG TAB PO (08:36)
[2017-10-29] MEDS: morphine (ER) 15 MG TAB PO (08:37)
[2017-10-29] MEDS: HEPARIN 5,000 UNIT/0.5 ML VIAL SC ×2 (08:39→22:34)
[2017-10-29 09:02] LABS: ADD MAN DIFF? NO
[2017-10-29 09:10] LABS: ABNORMAL IP MESSAGE 1; BASOPHILS % 0.7 % (0.0-2.0); EOSINOPHILS # 0.4 10^3/ul (0.0-0.5); EOSINOPHILS % 5.7 % (0.0-7.0); HEMATOCRIT 26.4 % (42.0-52.0); LYMPHOCYTES # 0.5 10^3/ul (0.8-2.9); LYMPHOCYTES % 7.8 % (15.0-51.0); MEAN CORPUSCULAR HEMOGLOBIN 28.7 pg (29.0-33.0); MEAN CORPUSCULAR HGB CONC 30.3 g/dl (32.0-37.0); MEAN CORPUSCULAR VOLUME 94.6 fl (82.0-101.0); MEAN PLATELET VOLUME 11.8 fl (7.4-10.4); MONOCYTE # 0.4 10^3/ul (0.3-0.9); MONOCYTES % 7.2 % (0.0-11.0); NEUTROPHIL # 4.8 10^3/ul (1.6-7.5); NEUTROPHILS % 78.3 % (39.0-77.0); PLATELET COUNT 145 10^3/UL (140-415); POSITIVE DIFF @See below; RED BLOOD COUNT 2.79 10^6/ul (4.70-6.10); RED CELL DISTRIBUTION WIDTH 16.3 % (11.5-14.5)
[2017-10-29 09:10] LABS: WHITE BLOOD COUNT 6.1 10^3/ul (4.8-10.8)
[2017-10-29 09:28] LABS: ANION GAP 17 (8-16); BLOOD UREA NITROGEN 28 mg/dl (7-20); CALCIUM 7.9 mg/dl (8.4-10.2); CARBON DIOXIDE 28 mmol/L (21-31); CHLORIDE 102 mmol/L (97-110); CREATININE 7.95 mg/dl (0.61-1.24); GLUCOSE 87 mg/dl (70-220); PHOSPHORUS 5.3 mg/dl (2.5-4.9); POTASSIUM 4.5 mmol/L (3.5-5.1); SODIUM 142 mmol/L (135-144)
[2017-10-29 10:55] LABS: MAGNESIUM 1.8 mg/dl (1.7-2.5)
[2017-10-29] MEDS: ONDANSETRON 4 MG INJ IV (10:55)
[2017-10-29] MEDS: PANTOPRAZOLE 40 MG INJ IV ×2 (12:13→18:06)
[2017-10-29] MEDS: METOCLOPRAMIDE 10 MG INJ IV ×3 (12:13→23:39)
[2017-10-29] MEDS: KETOROLAC 30 MG INJ IV (18:06)
[2017-10-29] MEDS: MIRTAZAPINE 15 MG TAB PO (22:03)
[2017-10-29] MEDS: QUETIAPINE 100 MG TAB PO (22:04)
[2017-10-30] MEDS: PANTOPRAZOLE 40 MG INJ IV ×2 (06:41→17:40)
[2017-10-30] MEDS: LEVOTHYROXINE 88 MCG TAB PO (06:41)
[2017-10-30] MEDS: METOCLOPRAMIDE 10 MG INJ IV ×3 (06:41→17:40)
[2017-10-30] MEDS: METOPROLOL (XL) 50 MG TAB PO (09:16)
[2017-10-30] MEDS: CHOLECALCIFEROL 1,000 UNIT TAB PO (09:17)
[2017-10-30] MEDS: LISINOPRIL 5 MG TAB PO (09:17)
[2017-10-30] MEDS: ASPIRIN 81 MG TAB PO (09:18)
[2017-10-30] MEDS: CINACALCET 30 MG TAB PO (09:21)
[2017-10-30] MEDS: HEPARIN 5,000 UNIT/0.5 ML VIAL SC (09:21)
[2017-10-30 16:16] LABS: INR 1.17; PROTIME 15.1 Sec (11.9-14.9); PT RATIO 1.2
[2017-10-30 16:17] LABS: PARTIAL THROMBOPLASTIN TIME 41.4 Sec (25.0-35.0)
[2017-10-30] MEDS: HEPARIN 1000 UNITS/ML 10 ML INJ CATHETER (16:57)
[2017-10-30] MEDS: MIRTAZAPINE 15 MG TAB PO (20:30)
[2017-10-30] MEDS: QUETIAPINE 100 MG TAB PO (20:30)
[2017-10-30] MEDS: ZOLPIDEM 5 MG TAB PO (21:01)
[2017-10-31] MEDS: METOCLOPRAMIDE 10 MG INJ IV ×3 (00:35→12:40)
[2017-10-31] MEDS: KETOROLAC 30 MG INJ IV ×2 (03:05→15:06)
[2017-10-31] MEDS: LOPERAMIDE 2 MG CAP PO (05:02)
[2017-10-31] MEDS: PANTOPRAZOLE 40 MG INJ IV (05:09)
[2017-10-31] MEDS: HYDROCODONE/APAP (5/325) TAB PO (05:09)
[2017-10-31 08:27] LABS: ADD MAN DIFF? NO
[2017-10-31 08:33] LABS: ABNORMAL IP MESSAGE 1; BASOPHILS % 0.5 % (0.0-2.0); EOSINOPHILS # 0.2 10^3/ul (0.0-0.5); EOSINOPHILS % 2.1 % (0.0-7.0); HEMATOCRIT 27.1 % (42.0-52.0); HEMOGLOBIN 8.4 g/dl (14.0-18.0); LYMPHOCYTES # 0.3 10^3/ul (0.8-2.9); MEAN CORPUSCULAR HEMOGLOBIN 28.7 pg (29.0-33.0); MEAN CORPUSCULAR VOLUME 92.5 fl (82.0-101.0); MEAN PLATELET VOLUME 11.6 fl (7.4-10.4); MONOCYTE # 0.5 10^3/ul (0.3-0.9); MONOCYTES % 6.1 % (0.0-11.0); NEUTROPHIL # 7.4 10^3/ul (1.6-7.5); NEUTROPHILS % 87.1 % (39.0-77.0); PLATELET COUNT 155 10^3/UL (140-415); POSITIVE DIFF @See below; RED BLOOD COUNT 2.93 10^6/ul (4.70-6.10); RED CELL DISTRIBUTION WIDTH 16.2 % (11.5-14.5)
[2017-10-31 08:33] LABS: WHITE BLOOD COUNT 8.5 10^3/ul (4.8-10.8)
[2017-10-31 08:55] LABS: ANION GAP 17 (8-16); BLOOD UREA NITROGEN 26 mg/dl (7-20); CALCIUM 7.8 mg/dl (8.4-10.2); CARBON DIOXIDE 31 mmol/L (21-31); CHLORIDE 101 mmol/L (97-110); CREATININE 6.43 mg/dl (0.61-1.24); GLUCOSE 138 mg/dl (70-220); POTASSIUM 4.5 mmol/L (3.5-5.1); SODIUM 144 mmol/L (135-144)
[2017-10-31 09:06] LABS: MAGNESIUM 1.9 mg/dl (1.7-2.5)
[2017-10-31] MEDS: ASPIRIN 81 MG TAB PO (09:12)
[2017-10-31] MEDS: CINACALCET 30 MG TAB PO (09:12)
[2017-10-31] MEDS: METOPROLOL (XL) 50 MG TAB PO (09:13)
[2017-10-31] MEDS: CHOLECALCIFEROL 1,000 UNIT TAB PO (09:13)
[2017-10-31] MEDS: LEVOTHYROXINE 88 MCG TAB PO (09:13)
[2017-10-31] MEDS: LISINOPRIL 5 MG TAB PO (09:14)
[2017-10-31] MEDS: METOCLOPRAMIDE 5 MG TAB PO (17:29)
[2017-10-31] MEDS: QUETIAPINE 100 MG TAB PO (20:53)
[2017-10-31] MEDS: MIRTAZAPINE 15 MG TAB PO (20:53)
[2017-10-31] MEDS: APIXABAN 5 MG TABLET PO (20:53)
[2017-11-01] MEDS: PANTOPRAZOLE (EC) 40 MG TAB PO (05:36)
[2017-11-01] MEDS: LISINOPRIL 5 MG TAB PO (09:00)
[2017-11-01] MEDS: METOPROLOL (XL) 50 MG TAB PO (09:00)
[2017-11-01] MEDS: LEVOTHYROXINE 88 MCG TAB PO (09:16)
[2017-11-01] MEDS: CINACALCET 30 MG TAB PO (09:16)
[2017-11-01] MEDS: CHOLECALCIFEROL 1,000 UNIT TAB PO (09:17)
[2017-11-01] MEDS: APIXABAN 5 MG TABLET PO ×2 (09:17→21:28)
[2017-11-01] MEDS: METOCLOPRAMIDE 5 MG TAB PO ×3 (09:17→18:23)
[2017-11-01] MEDS: ASPIRIN 81 MG TAB PO (09:17)
[2017-11-01] MEDS: KETOROLAC 30 MG INJ IV (09:25)
[2017-11-01 11:11] LABS: ADD MAN DIFF? NO
[2017-11-01 11:13] LABS: ABNORMAL IP MESSAGE 1; BASOPHILS % 0.5 % (0.0-2.0); EOSINOPHILS # 0.2 10^3/ul (0.0-0.5); EOSINOPHILS % 3.8 % (0.0-7.0); HEMATOCRIT 27.8 % (42.0-52.0); HEMOGLOBIN 8.4 g/dl (14.0-18.0); LYMPHOCYTES # 0.6 10^3/ul (0.8-2.9); LYMPHOCYTES % 9.2 % (15.0-51.0); MEAN CORPUSCULAR HEMOGLOBIN 27.9 pg (29.0-33.0); MEAN CORPUSCULAR HGB CONC 30.2 g/dl (32.0-37.0); MEAN CORPUSCULAR VOLUME 92.4 fl (82.0-101.0); MEAN PLATELET VOLUME 11.2 fl (7.4-10.4); MONOCYTE # 0.3 10^3/ul (0.3-0.9); MONOCYTES % 4.9 % (0.0-11.0); NEUTROPHIL # 5.1 10^3/ul (1.6-7.5); NEUTROPHILS % 81.3 % (39.0-77.0); PLATELET COUNT 141 10^3/UL (140-415); POSITIVE DIFF @See below; RED BLOOD COUNT 3.01 10^6/ul (4.70-6.10); RED CELL DISTRIBUTION WIDTH 16.3 % (11.5-14.5)
[2017-11-01 11:13] LABS: WHITE BLOOD COUNT 6.3 10^3/ul (4.8-10.8)
[2017-11-01 11:34] LABS: ANION GAP 18 (8-16); BLOOD UREA NITROGEN 29 mg/dl (7-20); CALCIUM 7.8 mg/dl (8.4-10.2); CARBON DIOXIDE 29 mmol/L (21-31); CHLORIDE 100 mmol/L (97-110); CREATININE 6.05 mg/dl (0.61-1.24); GLUCOSE 99 mg/dl (70-220); POTASSIUM 4.6 mmol/L (3.5-5.1); SODIUM 142 mmol/L (135-144)
[2017-11-01 12:22] LABS: CARCINOEMBRYONIC ANTIGEN 20.1 ng/ml (0.0-5.0)
[2017-11-01] MEDS ORDERED: HEPARIN 1000 UNITS/ML 10 ML INJ CATHETER (12:30)
[2017-11-01] MEDS: HEPARIN 1000 UNITS/ML 10 ML INJ CATHETER (13:40)
[2017-11-01] MEDS: HYDROCODONE/APAP (5/325) TAB PO (14:16)
[2017-11-01] MEDS: MIRTAZAPINE 15 MG TAB PO (21:28)
[2017-11-01] MEDS: QUETIAPINE 100 MG TAB PO (21:28)
[2017-11-01] MEDS: ZOLPIDEM 5 MG TAB PO (23:24)
[2017-11-02] MEDS: PANTOPRAZOLE (EC) 40 MG TAB PO (06:09)
[2017-11-02] MEDS: LEVOTHYROXINE 88 MCG TAB PO (06:09)
[2017-11-02] MEDS: APIXABAN 5 MG TABLET PO ×2 (09:09→21:15)
[2017-11-02] MEDS: CINACALCET 30 MG TAB PO (09:09)
[2017-11-02 09:10] LABS: ADD MAN DIFF? NO
[2017-11-02] MEDS: METOPROLOL (XL) 50 MG TAB PO (09:10)
[2017-11-02] MEDS: LISINOPRIL 5 MG TAB PO (09:10)
[2017-11-02] MEDS: CHOLECALCIFEROL 1,000 UNIT TAB PO (09:10)
[2017-11-02] MEDS: METOCLOPRAMIDE 5 MG TAB PO ×3 (09:11→17:47)
[2017-11-02] MEDS: ASPIRIN 81 MG TAB PO (09:11)
[2017-11-02 09:13] LABS: ABNORMAL IP MESSAGE 1; BASOPHILS % 0.4 % (0.0-2.0); EOSINOPHILS # 0.4 10^3/ul (0.0-0.5); EOSINOPHILS % 5.2 % (0.0-7.0); HEMATOCRIT 28.3 % (42.0-52.0); HEMOGLOBIN 8.7 g/dl (14.0-18.0); LYMPHOCYTES # 0.6 10^3/ul (0.8-2.9); LYMPHOCYTES % 8.1 % (15.0-51.0); MEAN CORPUSCULAR HEMOGLOBIN 28.7 pg (29.0-33.0); MEAN CORPUSCULAR HGB CONC 30.7 g/dl (32.0-37.0); MEAN CORPUSCULAR VOLUME 93.4 fl (82.0-101.0); MEAN PLATELET VOLUME 10.1 fl (7.4-10.4); MONOCYTE # 0.6 10^3/ul (0.3-0.9); MONOCYTES % 8.4 % (0.0-11.0); NEUTROPHIL # 5.3 10^3/ul (1.6-7.5); NEUTROPHILS % 77.6 % (39.0-77.0); PLATELET COUNT 148 10^3/UL (140-415); POSITIVE DIFF @See below; RED BLOOD COUNT 3.03 10^6/ul (4.70-6.10); RED CELL DISTRIBUTION WIDTH 16.4 % (11.5-14.5)
[2017-11-02 09:13] LABS: WHITE BLOOD COUNT 6.9 10^3/ul (4.8-10.8)
[2017-11-02 09:33] LABS: ALANINE AMINOTRANSFERASE 17 IU/L (13-69); ALBUMIN 3.3 g/dl (3.3-4.9); ALKALINE PHOSPHATASE 116 IU/L (42-121); ANION GAP 15 (8-16); ASPARTATE AMINO TRANSFERASE 14 IU/L (15-46); BLOOD UREA NITROGEN 29 mg/dl (7-20); CALCIUM 8.1 mg/dl (8.4-10.2); CARBON DIOXIDE 28 mmol/L (21-31); CHLORIDE 102 mmol/L (97-110); CREATININE 5.89 mg/dl (0.61-1.24); GLUCOSE 90 mg/dl (70-220); POTASSIUM 5.4 mmol/L (3.5-5.1); SODIUM 140 mmol/L (135-144); TOTAL PROTEIN 7.4 g/dl (6.1-8.1)
[2017-11-02] MEDS: NA POLYST SULFON 15 GM/60 ML BTL PO (12:12)
[2017-11-02] MEDS: HYDROCODONE/APAP (5/325) TAB PO ×2 (15:20→21:16)
[2017-11-02] MEDS: morphine 2 MG INJ IV ×2 (17:47→23:23)
[2017-11-02] MEDS: QUETIAPINE 100 MG TAB PO (21:14)
[2017-11-02] MEDS: MIRTAZAPINE 15 MG TAB PO (21:15)
[2017-11-02] MEDS: ZOLPIDEM 5 MG TAB PO (23:23)
[2017-11-03] MEDS: DIPHENHYDRAMINE 50 MG CAP PO (01:47)
[2017-11-03] MEDS: LEVOTHYROXINE 88 MCG TAB PO (06:02)
[2017-11-03] MEDS: morphine 2 MG INJ IV ×2 (06:02→13:13)
[2017-11-03] MEDS: PANTOPRAZOLE (EC) 40 MG TAB PO (06:02)
[2017-11-03] MEDS: METOPROLOL (XL) 50 MG TAB PO (09:00)
[2017-11-03] MEDS: LISINOPRIL 5 MG TAB PO (09:00)
[2017-11-03] MEDS: APIXABAN 5 MG TABLET PO ×2 (09:16→20:09)
[2017-11-03] MEDS: METOCLOPRAMIDE 5 MG TAB PO ×3 (09:16→17:28)
[2017-11-03] MEDS: CHOLECALCIFEROL 1,000 UNIT TAB PO (09:16)
[2017-11-03] MEDS: ASPIRIN 81 MG TAB PO (09:16)
[2017-11-03] MEDS: CINACALCET 30 MG TAB PO (09:19)
[2017-11-03 10:07] LABS: ADD MAN DIFF? NO
[2017-11-03 10:13] LABS: WHITE BLOOD COUNT 5.4 10^3/ul (4.8-10.8)
[2017-11-03 10:13] LABS: ABNORMAL IP MESSAGE 1; BASOPHILS % 0.6 % (0.0-2.0); EOSINOPHILS # 0.3 10^3/ul (0.0-0.5); EOSINOPHILS % 5.6 % (0.0-7.0); HEMATOCRIT 26.8 % (42.0-52.0); HEMOGLOBIN 8.2 g/dl (14.0-18.0); LYMPHOCYTES # 0.6 10^3/ul (0.8-2.9); LYMPHOCYTES % 10.6 % (15.0-51.0); MEAN CORPUSCULAR HEMOGLOBIN 28.4 pg (29.0-33.0); MEAN CORPUSCULAR HGB CONC 30.6 g/dl (32.0-37.0); MEAN CORPUSCULAR VOLUME 92.7 fl (82.0-101.0); MONOCYTE # 0.5 10^3/ul (0.3-0.9); MONOCYTES % 8.7 % (0.0-11.0); NEUTROPHILS % 74.3 % (39.0-77.0); PLATELET COUNT 148 10^3/UL (140-415); POSITIVE DIFF @See below; RED BLOOD COUNT 2.89 10^6/ul (4.70-6.10); RED CELL DISTRIBUTION WIDTH 16.2 % (11.5-14.5)
[2017-11-03 10:38] LABS: ANION GAP 11 (8-16); BLOOD UREA NITROGEN 27 mg/dl (7-20); CARBON DIOXIDE 31 mmol/L (21-31); CHLORIDE 102 mmol/L (97-110); GLUCOSE 89 mg/dl (70-220); POTASSIUM 4.1 mmol/L (3.5-5.1); SODIUM 140 mmol/L (135-144)
[2017-11-03] MEDS: HEPARIN 1000 UNITS/ML 10 ML INJ CATHETER (12:44)
[2017-11-03] MEDS: HYDROCODONE/APAP (5/325) TAB PO ×2 (15:27→22:02)
[2017-11-03] MEDS: MIRTAZAPINE 15 MG TAB PO (20:08)
[2017-11-03] MEDS: QUETIAPINE 100 MG TAB PO (20:09)
[2017-11-03] MEDS: morphine LIQ (10 MG/5 ML) CUP PO (20:10)
[2017-11-03] MEDS: ZOLPIDEM 5 MG TAB PO (22:33)
[2017-11-04] MEDS: DILTIAZEM 50 MG INJ IV (00:30)
[2017-11-04] MEDS: LEVOTHYROXINE 88 MCG TAB PO (06:26)
[2017-11-04] MEDS: PANTOPRAZOLE (EC) 40 MG TAB PO (06:26)
[2017-11-04] MEDS: morphine LIQ (10 MG/5 ML) CUP PO ×3 (06:27→19:04)
[2017-11-04] MEDS: CINACALCET 30 MG TAB PO (09:56)
[2017-11-04] MEDS: METOCLOPRAMIDE 5 MG TAB PO ×3 (09:56→18:05)
[2017-11-04] MEDS: ASPIRIN 81 MG TAB PO (09:57)
[2017-11-04] MEDS: LISINOPRIL 5 MG TAB PO (09:57)
[2017-11-04] MEDS: CHOLECALCIFEROL 1,000 UNIT TAB PO (09:58)
[2017-11-04] MEDS: METOPROLOL (XL) 50 MG TAB PO (09:58)
[2017-11-04] MEDS: APIXABAN 5 MG TABLET PO ×2 (09:58→20:42)
[2017-11-04] MEDS: HYDROCODONE/APAP (5/325) TAB PO ×2 (10:03→20:41)
[2017-11-04] MEDS: QUETIAPINE 100 MG TAB PO (20:42)
[2017-11-04] MEDS: MIRTAZAPINE 15 MG TAB PO (20:46)
[2017-11-04] MEDS: ZOLPIDEM 5 MG TAB PO (22:28)
[2017-11-05] MEDS: PANTOPRAZOLE (EC) 40 MG TAB PO (06:00)
[2017-11-05] MEDS: LEVOTHYROXINE 88 MCG TAB PO (06:40)
[2017-11-05] MEDS: METOCLOPRAMIDE 5 MG TAB PO ×4 (08:00→17:36)
[2017-11-05 08:54] LABS: ADD MAN DIFF? NO
[2017-11-05] MEDS: CHOLECALCIFEROL 1,000 UNIT TAB PO ×2 (09:00→09:12)
[2017-11-05] MEDS: CINACALCET 30 MG TAB PO ×2 (09:00→09:13)
[2017-11-05] MEDS: ASPIRIN 81 MG TAB PO ×2 (09:00→09:12)
[2017-11-05] MEDS: LISINOPRIL 5 MG TAB PO (09:00)
[2017-11-05] MEDS: METOPROLOL (XL) 50 MG TAB PO (09:00)
[2017-11-05] MEDS: APIXABAN 5 MG TABLET PO ×3 (09:00→20:39)
[2017-11-05 09:02] LABS: BASOPHILS % 0.4 % (0.0-2.0); EOSINOPHILS # 0.3 10^3/ul (0.0-0.5); EOSINOPHILS % 5.1 % (0.0-7.0); HEMATOCRIT 27.4 % (42.0-52.0); HEMOGLOBIN 8.3 g/dl (14.0-18.0); LYMPHOCYTES # 0.7 10^3/ul (0.8-2.9); LYMPHOCYTES % 14.2 % (15.0-51.0); MEAN CORPUSCULAR HEMOGLOBIN 28.4 pg (29.0-33.0); MEAN CORPUSCULAR HGB CONC 30.3 g/dl (32.0-37.0); MEAN CORPUSCULAR VOLUME 93.8 fl (82.0-101.0); MEAN PLATELET VOLUME 11.3 fl (7.4-10.4); MONOCYTE # 0.4 10^3/ul (0.3-0.9); MONOCYTES % 8.5 % (0.0-11.0); NEUTROPHIL # 3.6 10^3/ul (1.6-7.5); NEUTROPHILS % 71.6 % (39.0-77.0); PLATELET COUNT 159 10^3/UL (140-415); RED BLOOD COUNT 2.92 10^6/ul (4.70-6.10); RED CELL DISTRIBUTION WIDTH 16.2 % (11.5-14.5)
[2017-11-05 09:02] LABS: WHITE BLOOD COUNT 5.1 10^3/ul (4.8-10.8)
[2017-11-05 09:19] LABS: ANION GAP 14 (8-16); BLOOD UREA NITROGEN 33 mg/dl (7-20); CALCIUM 8.2 mg/dl (8.4-10.2); CARBON DIOXIDE 30 mmol/L (21-31); CHLORIDE 102 mmol/L (97-110); CREATININE 7.82 mg/dl (0.61-1.24); GLUCOSE 95 mg/dl (70-220); POTASSIUM 4.5 mmol/L (3.5-5.1); SODIUM 141 mmol/L (135-144)
[2017-11-05 09:35] LABS: INR 1.26; PT RATIO 1.3
[2017-11-05] MEDS: ONDANSETRON 4 MG INJ IV (12:53)
[2017-11-05] MEDS: MIRTAZAPINE 15 MG TAB PO (20:38)
[2017-11-05] MEDS: QUETIAPINE 100 MG TAB PO (20:39)
[2017-11-05] MEDS: HYDROCODONE/APAP (5/325) TAB PO (20:39)
[2017-11-05] MEDS: morphine LIQ (10 MG/5 ML) CUP PO (20:40)
[2017-11-06] MEDS: PANTOPRAZOLE (EC) 40 MG TAB PO (06:00)
[2017-11-06] MEDS: LEVOTHYROXINE 88 MCG TAB PO (06:26)
[2017-11-06] MEDS ORDERED: CEFAZOLIN 1 GM INJ ×2 (07:00→19:00)
[2017-11-06] MEDS ORDERED: ESMOLOL 100 MG INJ (07:00)
[2017-11-06] MEDS: METOCLOPRAMIDE 5 MG TAB PO ×3 (08:00→16:50)
[2017-11-06] MEDS: APIXABAN 5 MG TABLET PO ×2 (08:53→21:00)
[2017-11-06] MEDS: ASPIRIN 81 MG TAB PO (08:53)
[2017-11-06] MEDS: CHOLECALCIFEROL 1,000 UNIT TAB PO (08:53)
[2017-11-06] MEDS: LISINOPRIL 5 MG TAB PO (08:53)
[2017-11-06] MEDS: CINACALCET 30 MG TAB PO (08:53)
[2017-11-06] MEDS: METOPROLOL (XL) 50 MG TAB PO (08:53)
[2017-11-06 09:10] LABS: ADD MAN DIFF? NO
[2017-11-06 09:14] LABS: WHITE BLOOD COUNT 6.2 10^3/ul (4.8-10.8)
[2017-11-06 09:14] LABS: BASOPHILS % 0.6 % (0.0-2.0); EOSINOPHILS # 0.4 10^3/ul (0.0-0.5); EOSINOPHILS % 6.8 % (0.0-7.0); HEMATOCRIT 32.4 % (42.0-52.0); HEMOGLOBIN 9.8 g/dl (14.0-18.0); LYMPHOCYTES # 0.9 10^3/ul (0.8-2.9); LYMPHOCYTES % 14.4 % (15.0-51.0); MEAN CORPUSCULAR HEMOGLOBIN 28.3 pg (29.0-33.0); MEAN CORPUSCULAR HGB CONC 30.2 g/dl (32.0-37.0); MEAN CORPUSCULAR VOLUME 93.6 fl (82.0-101.0); MEAN PLATELET VOLUME 10.2 fl (7.4-10.4); MONOCYTE # 0.5 10^3/ul (0.3-0.9); MONOCYTES % 8.1 % (0.0-11.0); NEUTROPHIL # 4.3 10^3/ul (1.6-7.5); NEUTROPHILS % 69.8 % (39.0-77.0); PLATELET COUNT 169 10^3/UL (140-415); RED BLOOD COUNT 3.46 10^6/ul (4.70-6.10); RED CELL DISTRIBUTION WIDTH 16.4 % (11.5-14.5)
[2017-11-06 09:37] LABS: ANION GAP 20 (8-16); BLOOD UREA NITROGEN 42 mg/dl (7-20); CALCIUM 8.7 mg/dl (8.4-10.2); CARBON DIOXIDE 29 mmol/L (21-31); CHLORIDE 96 mmol/L (97-110); CREATININE 9.43 mg/dl (0.61-1.24); GLUCOSE 86 mg/dl (70-220); MAGNESIUM 1.6 mg/dl (1.7-2.5); PHOSPHORUS 5.1 mg/dl (2.5-4.9); SODIUM 140 mmol/L (135-144)
[2017-11-06] MEDS: LOPERAMIDE 2 MG CAP PO ×2 (10:03→12:25)
[2017-11-06 18:22] LABS: POTASSIUM 5.5 mmol/L (3.5-5.1)
[2017-11-06] MEDS ORDERED: ETOMIDATE 20 MG INJ (19:00)
[2017-11-06] MEDS ORDERED: ROCURONIUM 50 MG INJ ×2 (19:00→21:11)
[2017-11-06] MEDS ORDERED: MIDAZOLAM 1 MG/ML 2 ML INJ (19:01)
[2017-11-06] MEDS ORDERED: FENTAnyl 50 MCG/ML VIAL ×2 (19:01→19:41)
[2017-11-06] MEDS ORDERED: ONDANSETRON 4 MG INJ (19:01)
[2017-11-06] MEDS ORDERED: METOCLOPRAMIDE 10 MG INJ (19:01)
[2017-11-06] MEDS ORDERED: PHENYLephrine (100 MCG/ML) 5ML SYG ×2 (19:56→21:12)
[2017-11-06] MEDS ORDERED: BUPIVACAINE 0.5%/EPI (SDV) 30 ML INJ (19:58)
[2017-11-06] MEDS ORDERED: LIDOCAINE 0.5% (MDV) 50 ML INJ (19:58)
[2017-11-06] MEDS ORDERED: EPHEDrine SULFATE 50 MG/5 ML SYG (20:06)
[2017-11-06] MEDS ORDERED: HYDROmorphONE 2 MG/ML SYG (20:37)
[2017-11-06 20:46] LABS: IMMEDIATE SPIN CROSSMATCH 1 4
[2017-11-06] MEDS: SOD CHLORIDE 0.9% 250 ML IV* (20:46)
[2017-11-06] MEDS ORDERED: HYDROmorphONE 0.5 MG/0.5 ML SYG IV ×6 (21:30→22:30)
[2017-11-06] MEDS ORDERED: ONDANSETRON 4 MG INJ IV ×2 (21:30→22:30)
[2017-11-06] MEDS ORDERED: EPHEDrine SULFATE 50 MG/5 ML SYG IV (21:30)
[2017-11-06] MEDS ORDERED: PROPOFOL 100 ML IV (21:30)
[2017-11-06] MEDS ORDERED: ESMOLOL 10 ML (22:01)
[2017-11-06] MEDS ORDERED: METOPROLOL 5 MG INJ (22:03)
[2017-11-06] MEDS ORDERED: PROPOFOL 100 ML (22:08)
[2017-11-06] MEDS: PROPOFOL 100 ML IV ×2 (22:30→22:59)
[2017-11-06 22:45] LABS: ADD MAN DIFF? NO
[2017-11-06 22:47] LABS: BASOPHILS % 0.3 % (0.0-2.0); EOSINOPHILS # 0.4 10^3/ul (0.0-0.5); EOSINOPHILS % 4.8 % (0.0-7.0); HEMATOCRIT 29.6 % (42.0-52.0); HEMOGLOBIN 9.2 g/dl (14.0-18.0); LYMPHOCYTES # 0.9 10^3/ul (0.8-2.9); LYMPHOCYTES % 9.7 % (15.0-51.0); MEAN CORPUSCULAR HEMOGLOBIN 28.3 pg (29.0-33.0); MEAN CORPUSCULAR HGB CONC 31.1 g/dl (32.0-37.0); MEAN CORPUSCULAR VOLUME 91.1 fl (82.0-101.0); MEAN PLATELET VOLUME 11.6 fl (7.4-10.4); MONOCYTE # 0.5 10^3/ul (0.3-0.9); MONOCYTES % 5.2 % (0.0-11.0); NEUTROPHIL # 7.1 10^3/ul (1.6-7.5); NEUTROPHILS % 79.8 % (39.0-77.0); PLATELET COUNT 158 10^3/UL (140-415); RED BLOOD COUNT 3.25 10^6/ul (4.70-6.10); RED CELL DISTRIBUTION WIDTH 16.3 % (11.5-14.5)
[2017-11-06 22:51] LABS: ANION GAP 16 (8-16); BLOOD UREA NITROGEN 47 mg/dl (7-20); CARBON DIOXIDE 26 mmol/L (21-31); CHLORIDE 100 mmol/L (97-110); CREATININE 9.61 mg/dl (0.61-1.24); GLUCOSE 137 mg/dl (70-220); POTASSIUM 5.2 mmol/L (3.5-5.1); SODIUM 137 mmol/L (135-144)
[2017-11-06 22:55] LABS: MAGNESIUM 1.5 mg/dl (1.7-2.5)
[2017-11-06 23:07] LABS: INR 1.16; PT RATIO 1.2
[2017-11-06 23:08] LABS: PARTIAL THROMBOPLASTIN TIME 42.8 Sec (25.0-35.0)
[2017-11-06 23:16] LABS: Arterial Base Excess -3.2 mmol/L (-3.0-3); Arterial Blood Gas Oxygen Sat 99.5 mmHG (95.0-98.0); Arterial COHb 0.1 % (0.0-3.0); Arterial Fraction of Oxyhgb 99.3 % (93.0-99.0); Arterial MetHb 0.1 % (0.0-1.5); Arterial Total Hemglobin 10.4 g/dl (12.0-18.0); Arterial pCO2 46.4 mmhg (35-45); MODE VENT - AC; Site A-Line
[2017-11-06] MEDS: SOD CHLORIDE 0.9% 500 ML IV (23:49)
[2017-11-06] MEDS ORDERED: NORepinephrine 8MG/250 ML (PMX 250 ML (23:51)
[2017-11-07] MEDS: NORepinephrine 8MG/250 ML (PMX 250 ML IV (00:01)
[2017-11-07] MEDS: MIDAZOLAM (DRIP) 50 mg/50 mL 50 ML IV ×2 (00:02→06:03)
[2017-11-07] MEDS: MAGNESIUM SULFATE 2 GM/50 ML 50 ML IVPB (00:22)
[2017-11-07] MEDS: QUETIAPINE 100 MG TAB PO ×2 (01:35→21:21)
[2017-11-07] MEDS: MIRTAZAPINE 15 MG TAB PO ×2 (01:35→21:21)
[2017-11-07] MEDS: PROPOFOL 100 ML IV ×5 (02:31→22:20)
[2017-11-07] MEDS: PANTOPRAZOLE 40 MG INJ IV (06:42)
[2017-11-07] MEDS: LEVOTHYROXINE 88 MCG TAB PO (06:42)
[2017-11-07 06:55] LABS: ADD MAN DIFF? NO
[2017-11-07] MEDS: HEPARIN 1000 UNITS/ML 10 ML INJ CATHETER (06:57)
[2017-11-07 06:59] LABS: WHITE BLOOD COUNT 13.9 10^3/ul (4.8-10.8)
[2017-11-07 06:59] LABS: ABNORMAL IP MESSAGE 1; BASOPHILS % 0.3 % (0.0-2.0); EOSINOPHILS # 0.3 10^3/ul (0.0-0.5); EOSINOPHILS % 1.8 % (0.0-7.0); HEMATOCRIT 31.1 % (42.0-52.0); HEMOGLOBIN 9.7 g/dl (14.0-18.0); LYMPHOCYTES # 0.4 10^3/ul (0.8-2.9); LYMPHOCYTES % 2.7 % (15.0-51.0); MEAN CORPUSCULAR HEMOGLOBIN 28.3 pg (29.0-33.0); MEAN CORPUSCULAR HGB CONC 31.2 g/dl (32.0-37.0); MEAN CORPUSCULAR VOLUME 90.7 fl (82.0-101.0); MEAN PLATELET VOLUME 12.1 fl (7.4-10.4); MONOCYTE # 0.9 10^3/ul (0.3-0.9); MONOCYTES % 6.2 % (0.0-11.0); NEUTROPHIL # 12.3 10^3/ul (1.6-7.5); NEUTROPHILS % 88.6 % (39.0-77.0); PLATELET COUNT 148 10^3/UL (140-415); POSITIVE DIFF @See below; RED BLOOD COUNT 3.43 10^6/ul (4.70-6.10); RED CELL DISTRIBUTION WIDTH 16.7 % (11.5-14.5)
[2017-11-07 07:17] LABS: ANION GAP 13 (8-16); BLOOD UREA NITROGEN 22 mg/dl (7-20); CALCIUM 8.3 mg/dl (8.4-10.2); CARBON DIOXIDE 28 mmol/L (21-31); CHLORIDE 103 mmol/L (97-110); CREATININE 4.62 mg/dl (0.61-1.24); GLUCOSE 151 mg/dl (70-220); POTASSIUM 4.6 mmol/L (3.5-5.1); SODIUM 139 mmol/L (135-144)
[2017-11-07 07:18] LABS: MAGNESIUM 1.7 mg/dl (1.7-2.5)
[2017-11-07 07:18] LABS: PHOSPHORUS 3.3 mg/dl (2.5-4.9)
[2017-11-07] MEDS: METOCLOPRAMIDE 5 MG TAB PO ×3 (07:48→17:16)
[2017-11-07] MEDS: METOPROLOL (XL) 50 MG TAB PO (08:09)
[2017-11-07] MEDS: LISINOPRIL 5 MG TAB PO (08:09)
[2017-11-07] MEDS: CINACALCET 30 MG TAB PO (08:12)
[2017-11-07] MEDS: CHOLECALCIFEROL 1,000 UNIT TAB PO (08:12)
[2017-11-07] MEDS: ASPIRIN 81 MG TAB PO (08:12)
[2017-11-07 08:45] LABS: Arterial Base Excess -0.9 mmol/L (-3.0-3); Arterial COHb 0.5 % (0.0-3.0); Arterial Fraction of Oxyhgb 97.4 % (93.0-99.0); Arterial HCO3 25.4 mmol/L (22.0-26.0); Arterial MetHb 0.3 % (0.0-1.5); Arterial Total Hemglobin 10.2 g/dl (12.0-18.0); MODE VENT - AC; Site A-Line
[2017-11-07] MEDS: LIDOCAINE 1% (MPF) 5 ML VIAL SC (12:00)
[2017-11-07] MEDS: ACETAMINOPHEN 650MG/20.3ML CUP NGT (18:18)
[2017-11-08] MEDS: morphine LIQ (10 MG/5 ML) CUP PO ×3 (03:10→20:09)
[2017-11-08] MEDS: PROPOFOL 100 ML IV (04:14)
[2017-11-08 05:13] LABS: ADD MAN DIFF? NO
[2017-11-08 05:15] LABS: ABNORMAL IP MESSAGE 1; BASOPHILS % 0.2 % (0.0-2.0); EOSINOPHILS # 0.3 10^3/ul (0.0-0.5); EOSINOPHILS % 2.8 % (0.0-7.0); HEMATOCRIT 25.2 % (42.0-52.0); HEMOGLOBIN 8.2 g/dl (14.0-18.0); LYMPHOCYTES # 0.5 10^3/ul (0.8-2.9); LYMPHOCYTES % 4.6 % (15.0-51.0); MEAN CORPUSCULAR HEMOGLOBIN 29.2 pg (29.0-33.0); MEAN CORPUSCULAR HGB CONC 32.5 g/dl (32.0-37.0); MEAN CORPUSCULAR VOLUME 89.7 fl (82.0-101.0); MEAN PLATELET VOLUME 12.1 fl (7.4-10.4); MONOCYTE # 1.1 10^3/ul (0.3-0.9); MONOCYTES % 9.2 % (0.0-11.0); NEUTROPHIL # 9.5 10^3/ul (1.6-7.5); NEUTROPHILS % 82.6 % (39.0-77.0); PLATELET COUNT 135 10^3/UL (140-415); POSITIVE DIFF @See below; RED BLOOD COUNT 2.81 10^6/ul (4.70-6.10); RED CELL DISTRIBUTION WIDTH 16.5 % (11.5-14.5)
[2017-11-08 05:15] LABS: WHITE BLOOD COUNT 11.5 10^3/ul (4.8-10.8)
[2017-11-08] MEDS: LEVOTHYROXINE 88 MCG TAB PO (05:37)
[2017-11-08] MEDS: PANTOPRAZOLE 40 MG INJ IV (05:37)
[2017-11-08 05:43] LABS: ANION GAP 15 (8-16); BLOOD UREA NITROGEN 31 mg/dl (7-20); CALCIUM 7.8 mg/dl (8.4-10.2); CARBON DIOXIDE 27 mmol/L (21-31); CHLORIDE 99 mmol/L (97-110); CREATININE 7.18 mg/dl (0.61-1.24); GLUCOSE 126 mg/dl (70-220); MAGNESIUM 1.7 mg/dl (1.7-2.5); PHOSPHORUS 5.1 mg/dl (2.5-4.9); POTASSIUM 5.3 mmol/L (3.5-5.1); SODIUM 136 mmol/L (135-144)
[2017-11-08] MEDS: METOCLOPRAMIDE 5 MG TAB PO ×3 (07:35→17:35)
[2017-11-08] MEDS: ASPIRIN 81 MG TAB PO (08:40)
[2017-11-08] MEDS: CINACALCET 30 MG TAB PO (08:40)
[2017-11-08] MEDS: CHOLECALCIFEROL 1,000 UNIT TAB PO (08:40)
[2017-11-08] MEDS: METOPROLOL (XL) 50 MG TAB PO (08:45)
[2017-11-08] MEDS: LISINOPRIL 5 MG TAB PO (08:45)
[2017-11-08] MEDS ORDERED: VANCOMYCIN IV PER PHARMACY XX (09:00)
[2017-11-08] MEDS: PIPER-TAZO 2.25 GM (PMX) 50 ML IVPB ×3 (09:12→21:53)
[2017-11-08 09:38] LABS: LACTIC ACID 0.9 mmol/L (0.5-2.0)
[2017-11-08] MEDS: VANCOMYCIN 1.5 GM in SOD CHLORIDE 0.9% 250 ML IVPB (10:54)
[2017-11-08 12:04] LABS: AADO2 Arterial 68.4 mmHg (7.0-24.0); Arterial Base Excess -1.6 mmol/L (-3.0-3); Arterial Blood Gas Oxygen Sat 97.4 mmHG (95.0-98.0); Arterial COHb 1.2 % (0.0-3.0); Arterial Fraction of Oxyhgb 95.9 % (93.0-99.0); Arterial HCO3 23.3 mmol/L (22.0-26.0); Arterial MetHb 0.3 % (0.0-1.5); Arterial Total Hemglobin 6.6 g/dl (12.0-18.0); Arterial pCO2 39.7 mmhg (35-45); Blood Gas PS 10; MODE VENT - CPAP; Site A-Line
[2017-11-08] MEDS: HYDROCODONE/APAP (5/325) TAB PO ×2 (13:03→15:54)
[2017-11-08] MEDS: HEPARIN 1000 UNITS/ML 10 ML INJ CATHETER (17:50)
[2017-11-08] MEDS: ACETAMINOPHEN 650MG/20.3ML CUP NGT (20:26)
[2017-11-08] MEDS: QUETIAPINE 100 MG TAB PO (21:52)
[2017-11-08] MEDS: MIRTAZAPINE 15 MG TAB PO (21:52)
[2017-11-08] MEDS: ZOLPIDEM 5 MG TAB PO (22:09)
[2017-11-08] MEDS: METOPROLOL 5 MG INJ IV (23:06)
[2017-11-08] MEDS: SOD CHLORIDE 0.9% 500 ML IV (23:31)
[2017-11-09] MEDS: morphine LIQ (10 MG/5 ML) CUP PO ×3 (03:32→20:02)
[2017-11-09 05:17] LABS: ADD MAN DIFF? NO
[2017-11-09 05:20] LABS: ABNORMAL IP MESSAGE 1; BASOPHILS % 0.4 % (0.0-2.0); EOSINOPHILS # 0.3 10^3/ul (0.0-0.5); EOSINOPHILS % 2.5 % (0.0-7.0); HEMATOCRIT 22.8 % (42.0-52.0); HEMOGLOBIN 7.2 g/dl (14.0-18.0); LYMPHOCYTES # 0.6 10^3/ul (0.8-2.9); MEAN CORPUSCULAR HEMOGLOBIN 27.9 pg (29.0-33.0); MEAN CORPUSCULAR HGB CONC 31.6 g/dl (32.0-37.0); MEAN CORPUSCULAR VOLUME 88.4 fl (82.0-101.0); MEAN PLATELET VOLUME 11.9 fl (7.4-10.4); MONOCYTE # 0.8 10^3/ul (0.3-0.9); MONOCYTES % 8.2 % (0.0-11.0); NEUTROPHIL # 8.1 10^3/ul (1.6-7.5); NEUTROPHILS % 82.5 % (39.0-77.0); PLATELET COUNT 124 10^3/UL (140-415); POSITIVE DIFF @See below; RED BLOOD COUNT 2.58 10^6/ul (4.70-6.10); RED CELL DISTRIBUTION WIDTH 16.6 % (11.5-14.5)
[2017-11-09 05:20] LABS: WHITE BLOOD COUNT 9.9 10^3/ul (4.8-10.8)
[2017-11-09] MEDS: PIPER-TAZO 2.25 GM (PMX) 50 ML IVPB ×3 (05:38→21:30)
[2017-11-09] MEDS: PANTOPRAZOLE 40 MG INJ IV (05:38)
[2017-11-09] MEDS: HYDROCODONE/APAP (5/325) TAB PO ×2 (05:39→18:15)
[2017-11-09 05:54] LABS: ANION GAP 14 (8-16); BLOOD UREA NITROGEN 23 mg/dl (7-20); CALCIUM 7.6 mg/dl (8.4-10.2); CARBON DIOXIDE 28 mmol/L (21-31); CHLORIDE 101 mmol/L (97-110); CREATININE 5.55 mg/dl (0.61-1.24); GLUCOSE 79 mg/dl (70-220); MAGNESIUM 1.7 mg/dl (1.7-2.5); PHOSPHORUS 5.5 mg/dl (2.5-4.9); POTASSIUM 4.8 mmol/L (3.5-5.1); SODIUM 138 mmol/L (135-144)
[2017-11-09] MEDS: LEVOTHYROXINE 88 MCG TAB PO (06:31)
[2017-11-09] MEDS: METOCLOPRAMIDE 5 MG TAB PO ×3 (07:35→16:54)
[2017-11-09] MEDS: CINACALCET 30 MG TAB PO (08:25)
[2017-11-09] MEDS: CHOLECALCIFEROL 1,000 UNIT TAB PO (08:25)
[2017-11-09] MEDS: METOPROLOL (XL) 50 MG TAB PO (08:26)
[2017-11-09] MEDS: LISINOPRIL 5 MG TAB PO (08:26)
[2017-11-09] MEDS: ASPIRIN 81 MG TAB PO (08:26)
[2017-11-09 10:41] LABS: HEMATOCRIT 21.9 % (42.0-52.0)
[2017-11-09 10:59] LABS: HEMOGLOBIN 6.9 g/dl (14.0-18.0)
[2017-11-09 12:50] LABS: IMMEDIATE SPIN CROSSMATCH 1 3
[2017-11-09] MEDS: EPOETIN 10000 UNITS/1 ML INJ (ESRD) SC (16:54)
[2017-11-09] MEDS: MIRTAZAPINE 15 MG TAB PO (21:28)
[2017-11-09] MEDS: QUETIAPINE 100 MG TAB PO (21:28)
[2017-11-09] MEDS: ZOLPIDEM 5 MG TAB PO (21:30)
[2017-11-10] MEDS: HYDROCODONE/APAP (5/325) TAB PO ×2 (00:39→06:48)
[2017-11-10] MEDS: morphine LIQ (10 MG/5 ML) CUP PO ×2 (02:43→09:23)
[2017-11-10 05:33] LABS: ADD MAN DIFF? NO
[2017-11-10 05:55] LABS: WHITE BLOOD COUNT 8.7 10^3/ul (4.8-10.8)
[2017-11-10 05:55] LABS: BASOPHILS % 0.5 % (0.0-2.0); EOSINOPHILS # 0.4 10^3/ul (0.0-0.5); EOSINOPHILS % 5.1 % (0.0-7.0); HEMATOCRIT 26.3 % (42.0-52.0); HEMOGLOBIN 8.6 g/dl (14.0-18.0); LYMPHOCYTES # 0.7 10^3/ul (0.8-2.9); LYMPHOCYTES % 7.7 % (15.0-51.0); MEAN CORPUSCULAR HEMOGLOBIN 28.9 pg (29.0-33.0); MEAN CORPUSCULAR HGB CONC 32.7 g/dl (32.0-37.0); MEAN CORPUSCULAR VOLUME 88.3 fl (82.0-101.0); MEAN PLATELET VOLUME 11.4 fl (7.4-10.4); MONOCYTE # 0.5 10^3/ul (0.3-0.9); NEUTROPHILS % 80.1 % (39.0-77.0); PLATELET COUNT 144 10^3/UL (140-415); RED BLOOD COUNT 2.98 10^6/ul (4.70-6.10); RED CELL DISTRIBUTION WIDTH 16.3 % (11.5-14.5)
[2017-11-10 06:02] LABS: ANION GAP 16 (8-16); BLOOD UREA NITROGEN 40 mg/dl (7-20); CALCIUM 7.6 mg/dl (8.4-10.2); CARBON DIOXIDE 24 mmol/L (21-31); CHLORIDE 103 mmol/L (97-110); CREATININE 7.54 mg/dl (0.61-1.24); GLUCOSE 58 mg/dl (70-220); MAGNESIUM 1.8 mg/dl (1.7-2.5); PHOSPHORUS 6.9 mg/dl (2.5-4.9); POTASSIUM 4.8 mmol/L (3.5-5.1); SODIUM 138 mmol/L (135-144)
[2017-11-10] MEDS: PANTOPRAZOLE 40 MG INJ IV (06:16)
[2017-11-10] MEDS: PIPER-TAZO 2.25 GM (PMX) 50 ML IVPB (06:16)
[2017-11-10] MEDS: LEVOTHYROXINE 88 MCG TAB PO (06:47)
[2017-11-10] MEDS: METOCLOPRAMIDE 5 MG TAB PO ×3 (07:35→18:25)
[2017-11-10] MEDS ORDERED: DEXTROSE 50% 50 ML SYRINGE (08:19)
[2017-11-10] MEDS ORDERED: GLUCAGON 1 MG INJ IM (08:30)
[2017-11-10] MEDS ORDERED: GLUCOSE GEL 15 GRAM TUBE PO ×2 (08:30)
[2017-11-10] MEDS ORDERED: GLUCOSE GEL 15 GRAM TUBE BUCCAL (08:30)
[2017-11-10] MEDS ORDERED: DEXTROSE 50% 50 ML SYRINGE IV (08:30)
[2017-11-10] MEDS: DIPHENHYDRAMINE 50 MG CAP PO (08:33)
[2017-11-10] MEDS: DEXTROSE 50% 50 ML SYRINGE IV ×3 (08:33→21:51)
[2017-11-10] MEDS: METOPROLOL (XL) 50 MG TAB PO (09:00)
[2017-11-10] MEDS: HEPARIN 1000 UNITS/ML 10 ML INJ CATHETER (12:48)
[2017-11-10] MEDS: CHOLECALCIFEROL 1,000 UNIT TAB PO (13:07)
[2017-11-10] MEDS: ASPIRIN 81 MG TAB PO (13:07)
[2017-11-10] MEDS: LISINOPRIL 5 MG TAB PO (13:08)
[2017-11-10] MEDS: CINACALCET 30 MG TAB PO (13:08)
[2017-11-10] MEDS: HYDROmorphONE 1 MG/ML SYG IV (13:09)
[2017-11-10] MEDS: METOPROLOL 50 MG TAB NGT ×2 (13:50→21:34)
[2017-11-10] MEDS: FENTAnyl 50 MCG/ML VIAL IV ×2 (17:40→20:17)
[2017-11-10] MEDS: DEXTROSE 5% 1,000 ML IV (18:29)
[2017-11-10] MEDS: MIRTAZAPINE 15 MG TAB PO (21:34)
[2017-11-10] MEDS: QUETIAPINE 100 MG TAB PO (21:35)
[2017-11-10] MEDS: ZOLPIDEM 5 MG TAB PO (21:46)
[2017-11-11] MEDS: FENTAnyl 50 MCG/ML VIAL IV ×3 (01:04→08:07)
[2017-11-11 05:13] LABS: ADD MAN DIFF? NO
[2017-11-11 05:19] LABS: WHITE BLOOD COUNT 8.4 10^3/ul (4.8-10.8)
[2017-11-11 05:19] LABS: BASOPHILS % 0.4 % (0.0-2.0); EOSINOPHILS # 0.4 10^3/ul (0.0-0.5); EOSINOPHILS % 5.2 % (0.0-7.0); HEMATOCRIT 25.4 % (42.0-52.0); HEMOGLOBIN 8.1 g/dl (14.0-18.0); LYMPHOCYTES # 0.6 10^3/ul (0.8-2.9); LYMPHOCYTES % 7.5 % (15.0-51.0); MEAN CORPUSCULAR HGB CONC 31.9 g/dl (32.0-37.0); MEAN CORPUSCULAR VOLUME 87.9 fl (82.0-101.0); MEAN PLATELET VOLUME 11.5 fl (7.4-10.4); MONOCYTE # 0.5 10^3/ul (0.3-0.9); MONOCYTES % 6.4 % (0.0-11.0); NEUTROPHIL # 6.7 10^3/ul (1.6-7.5); NEUTROPHILS % 80.1 % (39.0-77.0); PLATELET COUNT 175 10^3/UL (140-415); RED BLOOD COUNT 2.89 10^6/ul (4.70-6.10)
[2017-11-11 05:46] LABS: PHOSPHORUS 5.4 mg/dl (2.5-4.9)
[2017-11-11 05:46] LABS: ANION GAP 13 (8-16); BLOOD UREA NITROGEN 28 mg/dl (7-20); CALCIUM 7.9 mg/dl (8.4-10.2); CARBON DIOXIDE 29 mmol/L (21-31); CHLORIDE 102 mmol/L (97-110); CREATININE 5.76 mg/dl (0.61-1.24); GLUCOSE 70 mg/dl (70-220); MAGNESIUM 1.8 mg/dl (1.7-2.5); POTASSIUM 4.1 mmol/L (3.5-5.1); SODIUM 140 mmol/L (135-144)
[2017-11-11] MEDS: LEVOTHYROXINE 88 MCG TAB PO (06:25)
[2017-11-11] MEDS: PANTOPRAZOLE 40 MG INJ IV (06:25)
[2017-11-11] MEDS: CHOLECALCIFEROL 1,000 UNIT TAB PO (08:06)
[2017-11-11] MEDS: METOPROLOL 50 MG TAB NGT ×2 (08:06→20:33)
[2017-11-11] MEDS: METOCLOPRAMIDE 5 MG TAB PO ×3 (08:06→18:01)
[2017-11-11] MEDS: LISINOPRIL 5 MG TAB PO (08:06)
[2017-11-11] MEDS: ASPIRIN 81 MG TAB PO (08:06)
[2017-11-11] MEDS: CINACALCET 30 MG TAB PO (08:06)
[2017-11-11] MEDS ORDERED: MAGNESIUM HYDROXIDE 30ML CUP PO (12:00)
[2017-11-11] MEDS: morphine LIQ (10 MG/5 ML) CUP PO ×3 (13:05→22:12)
[2017-11-11] MEDS: SENNA TAB PO (20:33)
[2017-11-11] MEDS: DOCUSATE SODIUM 100 MG CAP PO (20:34)
[2017-11-11] MEDS: MIRTAZAPINE 15 MG TAB PO (20:34)
[2017-11-11] MEDS: QUETIAPINE 100 MG TAB PO (20:34)
[2017-11-11] MEDS: ZOLPIDEM 5 MG TAB PO (22:15)
[2017-11-12] MEDS: ACETAMINOPHEN 650MG/20.3ML CUP NGT ×2 (00:07→17:37)
[2017-11-12] MEDS: morphine LIQ (10 MG/5 ML) CUP PO ×5 (02:13→20:35)
[2017-11-12] MEDS: PANTOPRAZOLE 40 MG INJ IV (06:03)
[2017-11-12] MEDS: LEVOTHYROXINE 88 MCG TAB PO (06:03)
[2017-11-12 07:09] LABS: ADD MAN DIFF? NO
[2017-11-12 07:14] LABS: WHITE BLOOD COUNT 6.4 10^3/ul (4.8-10.8)
[2017-11-12 07:14] LABS: BASOPHILS % 0.5 % (0.0-2.0); EOSINOPHILS # 0.4 10^3/ul (0.0-0.5); EOSINOPHILS % 6.4 % (0.0-7.0); HEMATOCRIT 25.9 % (42.0-52.0); HEMOGLOBIN 8.1 g/dl (14.0-18.0); LYMPHOCYTES # 0.7 10^3/ul (0.8-2.9); LYMPHOCYTES % 10.9 % (15.0-51.0); MEAN CORPUSCULAR HEMOGLOBIN 28.3 pg (29.0-33.0); MEAN CORPUSCULAR HGB CONC 31.3 g/dl (32.0-37.0); MEAN CORPUSCULAR VOLUME 90.6 fl (82.0-101.0); MEAN PLATELET VOLUME 10.9 fl (7.4-10.4); MONOCYTE # 0.6 10^3/ul (0.3-0.9); MONOCYTES % 8.7 % (0.0-11.0); NEUTROPHIL # 4.7 10^3/ul (1.6-7.5); PLATELET COUNT 166 10^3/UL (140-415); RED BLOOD COUNT 2.86 10^6/ul (4.70-6.10); RED CELL DISTRIBUTION WIDTH 15.7 % (11.5-14.5)
[2017-11-12 07:37] LABS: ANION GAP 14 (8-16); BLOOD UREA NITROGEN 36 mg/dl (7-20); CALCIUM 7.7 mg/dl (8.4-10.2); CARBON DIOXIDE 27 mmol/L (21-31); CHLORIDE 101 mmol/L (97-110); CREATININE 7.53 mg/dl (0.61-1.24); GLUCOSE 84 mg/dl (70-220); MAGNESIUM 1.8 mg/dl (1.7-2.5); PHOSPHORUS 6.8 mg/dl (2.5-4.9); POTASSIUM 4.2 mmol/L (3.5-5.1); SODIUM 138 mmol/L (135-144)
[2017-11-12] MEDS: CHOLECALCIFEROL 1,000 UNIT TAB PO (08:59)
[2017-11-12] MEDS: METOCLOPRAMIDE 5 MG TAB PO ×3 (08:59→18:10)
[2017-11-12] MEDS: CINACALCET 30 MG TAB PO (08:59)
[2017-11-12] MEDS: ASPIRIN 81 MG TAB PO (08:59)
[2017-11-12] MEDS: SENNA TAB PO ×2 (08:59→20:36)
[2017-11-12] MEDS: DOCUSATE SODIUM 100 MG CAP PO ×2 (08:59→20:36)
[2017-11-12] MEDS: LISINOPRIL 5 MG TAB PO (09:00)
[2017-11-12] MEDS: METOPROLOL 50 MG TAB NGT ×2 (09:00→20:36)
[2017-11-12] MEDS: HEPARIN 1000 UNITS/ML 10 ML INJ CATHETER (13:51)
[2017-11-12] MEDS: EPOETIN 10000 UNITS/1 ML INJ (ESRD) SC (17:16)
[2017-11-12] MEDS: MIRTAZAPINE 15 MG TAB PO (20:36)
[2017-11-12] MEDS: QUETIAPINE 100 MG TAB PO (20:36)
[2017-11-12] MEDS: ZOLPIDEM 5 MG TAB PO (21:38)
[2017-11-13] MEDS: LEVOTHYROXINE 88 MCG TAB PO (06:03)
[2017-11-13] MEDS: PANTOPRAZOLE 40 MG INJ IV (06:03)
[2017-11-13 06:18] LABS: ADD MAN DIFF? NO
[2017-11-13 06:22] LABS: BASOPHILS % 0.5 % (0.0-2.0); EOSINOPHILS # 0.4 10^3/ul (0.0-0.5); EOSINOPHILS % 4.9 % (0.0-7.0); HEMATOCRIT 27.3 % (42.0-52.0); HEMOGLOBIN 8.6 g/dl (14.0-18.0); LYMPHOCYTES # 0.6 10^3/ul (0.8-2.9); LYMPHOCYTES % 8.4 % (15.0-51.0); MEAN CORPUSCULAR HEMOGLOBIN 28.3 pg (29.0-33.0); MEAN CORPUSCULAR HGB CONC 31.5 g/dl (32.0-37.0); MEAN CORPUSCULAR VOLUME 89.8 fl (82.0-101.0); MEAN PLATELET VOLUME 11.4 fl (7.4-10.4); MONOCYTE # 0.7 10^3/ul (0.3-0.9); MONOCYTES % 9.2 % (0.0-11.0); NEUTROPHIL # 5.7 10^3/ul (1.6-7.5); NEUTROPHILS % 76.6 % (39.0-77.0); PLATELET COUNT 170 10^3/UL (140-415); RED BLOOD COUNT 3.04 10^6/ul (4.70-6.10); RED CELL DISTRIBUTION WIDTH 15.4 % (11.5-14.5)
[2017-11-13 06:22] LABS: WHITE BLOOD COUNT 7.4 10^3/ul (4.8-10.8)
[2017-11-13 07:03] LABS: ANION GAP 12 (8-16); BLOOD UREA NITROGEN 23 mg/dl (7-20); CALCIUM 7.7 mg/dl (8.4-10.2); CARBON DIOXIDE 30 mmol/L (21-31); CHLORIDE 101 mmol/L (97-110); CREATININE 5.59 mg/dl (0.61-1.24); GLUCOSE 89 mg/dl (70-220); MAGNESIUM 1.8 mg/dl (1.7-2.5); PHOSPHORUS 5.5 mg/dl (2.5-4.9); POTASSIUM 4.6 mmol/L (3.5-5.1); SODIUM 138 mmol/L (135-144)
[2017-11-13] MEDS: SEVELAMER 400 MG TAB PO ×3 (07:55→17:38)
[2017-11-13] MEDS: METOPROLOL 50 MG TAB NGT ×2 (08:15→21:13)
[2017-11-13] MEDS: CINACALCET 30 MG TAB PO (08:15)
[2017-11-13] MEDS: ASPIRIN 81 MG TAB PO (08:15)
[2017-11-13] MEDS: METOCLOPRAMIDE 5 MG TAB PO ×3 (08:15→17:38)
[2017-11-13] MEDS: CHOLECALCIFEROL 1,000 UNIT TAB PO (08:15)
[2017-11-13] MEDS: DOCUSATE SODIUM 100 MG CAP PO ×2 (08:17→21:00)
[2017-11-13] MEDS: SENNA TAB PO ×2 (08:17→21:00)
[2017-11-13] MEDS: LISINOPRIL 5 MG TAB PO (08:17)
[2017-11-13] MEDS: morphine LIQ (10 MG/5 ML) CUP PO ×2 (16:33→22:01)
[2017-11-13] MEDS: KETOROLAC 15 MG INJ IV (18:09)
[2017-11-13] MEDS: QUETIAPINE 100 MG TAB PO (21:13)
[2017-11-13] MEDS: MIRTAZAPINE 15 MG TAB PO (21:13)
[2017-11-13] MEDS: APIXABAN 5 MG TABLET PO (21:16)
[2017-11-13] MEDS ORDERED: HYDROCODONE/APAP (5/325) TAB GTB (22:00)
[2017-11-13] MEDS ORDERED: HYDROCODONE/APAP (5/325) TAB PO (23:30)
[2017-11-13] MEDS: HYDROCODONE/APAP (5/325) TAB PO (23:39)
[2017-11-14] MEDS: KETOROLAC 15 MG INJ IV ×3 (00:51→16:41)
[2017-11-14] MEDS: ZOLPIDEM 5 MG TAB PO (00:57)
[2017-11-14] MEDS: PANTOPRAZOLE 40 MG INJ IV (07:38)
[2017-11-14] MEDS: LEVOTHYROXINE 88 MCG TAB PO (07:38)
[2017-11-14] MEDS: SEVELAMER 400 MG TAB PO ×2 (08:01→12:58)
[2017-11-14] MEDS: ASPIRIN 81 MG TAB PO (08:01)
[2017-11-14] MEDS: METOCLOPRAMIDE 5 MG TAB PO ×2 (08:02→12:59)
[2017-11-14] MEDS: METOPROLOL 50 MG TAB NGT (08:02)
[2017-11-14] MEDS: CHOLECALCIFEROL 1,000 UNIT TAB PO (08:02)
[2017-11-14] MEDS: SENNA TAB PO (08:03)
[2017-11-14] MEDS: DOCUSATE SODIUM 100 MG CAP PO (08:03)
[2017-11-14] MEDS: CINACALCET 30 MG TAB PO (08:03)
[2017-11-14] MEDS: LISINOPRIL 5 MG TAB PO (08:03)
[2017-11-14] MEDS: APIXABAN 5 MG TABLET PO (08:03)
[2017-11-14] MEDS: hydrOXYzine HCL 25 MG TAB PO (11:45)
[2017-11-14 13:57] LABS: ADD MAN DIFF? NO
[2017-11-14 13:59] LABS: BASOPHIL # 0.1 10^3/ul (0.0-0.1); BASOPHILS % 0.8 % (0.0-2.0); EOSINOPHILS # 0.4 10^3/ul (0.0-0.5); EOSINOPHILS % 5.2 % (0.0-7.0); HEMATOCRIT 27.3 % (42.0-52.0); HEMOGLOBIN 8.5 g/dl (14.0-18.0); LYMPHOCYTES # 0.7 10^3/ul (0.8-2.9); LYMPHOCYTES % 8.8 % (15.0-51.0); MEAN CORPUSCULAR HEMOGLOBIN 28.7 pg (29.0-33.0); MEAN CORPUSCULAR HGB CONC 31.1 g/dl (32.0-37.0); MEAN CORPUSCULAR VOLUME 92.2 fl (82.0-101.0); MEAN PLATELET VOLUME 10.8 fl (7.4-10.4); MONOCYTE # 0.5 10^3/ul (0.3-0.9); MONOCYTES % 6.6 % (0.0-11.0); NEUTROPHIL # 6.1 10^3/ul (1.6-7.5); NEUTROPHILS % 78.1 % (39.0-77.0); PLATELET COUNT 206 10^3/UL (140-415); RED BLOOD COUNT 2.96 10^6/ul (4.70-6.10); RED CELL DISTRIBUTION WIDTH 15.6 % (11.5-14.5)
[2017-11-14 13:59] LABS: WHITE BLOOD COUNT 7.8 10^3/ul (4.8-10.8)
[2017-11-14 14:22] LABS: ANION GAP 11 (8-16); BLOOD UREA NITROGEN 28 mg/dl (7-20); CALCIUM 7.8 mg/dl (8.4-10.2); CARBON DIOXIDE 29 mmol/L (21-31); CHLORIDE 102 mmol/L (97-110); CREATININE 5.26 mg/dl (0.61-1.24); GLUCOSE 81 mg/dl (70-220); POTASSIUM 4.5 mmol/L (3.5-5.1); SODIUM 137 mmol/L (135-144)
[2017-11-14] MEDS: HEPARIN 1000 UNITS/ML 10 ML INJ CATHETER (15:52)
== END 2017-11-14 18:19 | disposition home health service (06) | DRG 981 ==
LOC: ICU 11-06 22:00 → TEL 11-11 12:03 → E/R 09:32 → MS4 12:51
PROC: 0BNL0ZZ Release Left Lung, Open Approach (ICD-10-PCS; principal; 2017-11-06 18:30)
PROC: 0W9B4ZZ Drainage of Left Pleural Cavity, Percutaneous Endoscopic Approach (ICD-10-PCS; 2017-11-06 18:30)
PROC: 0BJ08ZZ Inspection of Tracheobronchial Tree, Via Natural or Artificial Opening Endoscopic (ICD-10-PCS; 2017-11-06 18:30)
PROC: 0W9B30Z Drainage of Left Pleural Cavity with Drainage Device, Percutaneous Approach (ICD-10-PCS; 2017-11-06 18:30)
PROC: 30233N1 Transfusion of Nonautologous Red Blood Cells into Peripheral Vein, Percutaneous Approach (ICD-10-PCS; 2017-11-06 18:30)
PROC: 5A1945Z Respiratory Ventilation, 24-96 Consecutive Hours (ICD-10-PCS; 2017-11-06 19:13)
PROC: 5A1D70Z Performance of Urinary Filtration, Intermittent, Less than 6 Hours Per Day (ICD-10-PCS; 2017-11-06 19:13)
PROC: 02HV33Z Insertion of Infusion Device into Superior Vena Cava, Percutaneous Approach (ICD-10-PCS; 2017-11-06 19:13)
DX: I13.2 Hypertensive heart and chronic kidney disease with heart failure and with stage 5 chronic kidney disease, or end stage renal disease (principal); N18.6 End stage renal disease; J96.01 Acute respiratory failure with hypoxia; I50.23 Acute on chronic systolic (congestive) heart failure; A41.9 Sepsis, unspecified organism; R65.21 Severe sepsis with septic shock; F11.20 Opioid dependence, uncomplicated; J90 Pleural effusion, not elsewhere classified; J96.10 Chronic respiratory failure, unspecified whether with hypoxia or hypercapnia; D63.1 Anemia in chronic kidney disease; E11.22 Type 2 diabetes mellitus with diabetic chronic kidney disease; E11.40 Type 2 diabetes mellitus with diabetic neuropathy, unspecified; E87.70 Fluid overload, unspecified; E78.5 Hyperlipidemia, unspecified; E03.9 Hypothyroidism, unspecified; F17.200 Nicotine dependence, unspecified, uncomplicated; F31.9 Bipolar disorder, unspecified; G89.4 Chronic pain syndrome; I48.91 Unspecified atrial fibrillation; I25.10 Atherosclerotic heart disease of native coronary artery without angina pectoris; I25.5 Ischemic cardiomyopathy; J44.9 Chronic obstructive pulmonary disease, unspecified; Z99.2 Dependence on renal dialysis; Z91.15 Patient's noncompliance with renal dialysis; Z91.14 Patient's other noncompliance with medication regimen; Z86.718 Personal history of other venous thrombosis and embolism; Z79.02 Long term (current) use of antithrombotics/antiplatelets; Z79.82 Long term (current) use of aspirin; Z99.81 Dependence on supplemental oxygen
CPT/HCPCS: 36415; 36430; 36569; 36600; 71045; 71250; 74176; 76604; 76937; 80048; 80053; 80202; 82378; 82550; 82553; 82728; 82803; 82962; 83036; 83540; 83605; 83735; 84100; 84132; 84484; 85014; 85018; 85025; 85610; 85730; 86706; 86850; 86900; 86901; 86920; 87040; 87070; 87075; 87081; 87340; 88305; 89220; 90935; 92526; 92610; 93005; 93970; 94002; 94003; 94770; 96374; 96376; 97162; 97530; 99291-25

== ENCOUNTER 2017-11-24 19:39 | Inpatient (IN) | payer MEDICARE, OTHER ==
[2017-11-24 20:05] LABS: ADD MAN DIFF? NO
[2017-11-24] MEDS: IPRATROPIUM (NEB) 0.5 MG/2.5 ML AMP HHN (20:05)
[2017-11-24] MEDS: LEVALBUTEROL (NEB) 1.25 MG/0.5 ML AMP HHN (20:05)
[2017-11-24 20:14] LABS: WHITE BLOOD COUNT 8.3 10^3/ul (4.8-10.8)
[2017-11-24 20:14] LABS: BASOPHIL # 0.1 10^3/ul (0.0-0.1); BASOPHILS % 1.5 % (0.0-2.0); EOSINOPHILS # 1.1 10^3/ul (0.0-0.5); HEMATOCRIT 26.4 % (42.0-52.0); HEMOGLOBIN 8.3 g/dl (14.0-18.0); LYMPHOCYTES # 0.7 10^3/ul (0.8-2.9); LYMPHOCYTES % 7.9 % (15.0-51.0); MEAN CORPUSCULAR HGB CONC 31.4 g/dl (32.0-37.0); MEAN CORPUSCULAR VOLUME 89.2 fl (82.0-101.0); MEAN PLATELET VOLUME 11.2 fl (7.4-10.4); MONOCYTE # 0.5 10^3/ul (0.3-0.9); MONOCYTES % 5.7 % (0.0-11.0); NEUTROPHIL # 5.9 10^3/ul (1.6-7.5); NEUTROPHILS % 71.5 % (39.0-77.0); PLATELET COUNT 264 10^3/UL (140-415); RED BLOOD COUNT 2.96 10^6/ul (4.70-6.10); RED CELL DISTRIBUTION WIDTH 16.4 % (11.5-14.5)
[2017-11-24 20:27] LABS: ANION GAP 30 (8-16); BLOOD UREA NITROGEN 92 mg/dl (7-20); CALCIUM 7.8 mg/dl (8.4-10.2); CARBON DIOXIDE 18 mmol/L (21-31); CHLORIDE 99 mmol/L (97-110); GLUCOSE 82 mg/dl (70-220); SODIUM 140 mmol/L (135-144)
[2017-11-24 20:29] LABS: MAGNESIUM 1.7 mg/dl (1.7-2.5); PHOSPHORUS 7.7 mg/dl (2.5-4.9)
[2017-11-24 20:37] LABS: POTASSIUM 7.3 mmol/L (3.5-5.1)
[2017-11-24 20:38] LABS: TROPONIN-I 0.027 ng/ml (0.000-0.120)
[2017-11-24] MEDS: DEXTROSE 50% 50 ML SYRINGE IV ×3 (21:29→23:26)
[2017-11-24] MEDS: FUROSEMIDE 20 MG INJ IV (21:32)
[2017-11-24] MEDS: CALCIUM GLUCONATE 10% 1 GM in DEXTROSE 5% 100 ML IVPB (21:32)
[2017-11-24] MEDS: INSULIN REGULAR, HUMAN 100 UNIT/1 ML 3ML VIAL IVP (21:34)
[2017-11-24] MEDS ORDERED: ACETAMINOPHEN 325 MG TAB PO (23:00)
[2017-11-24] MEDS ORDERED: NACL 0.9% 3 ML SYG IV (23:00)
[2017-11-24] MEDS ORDERED: METOCLOPRAMIDE 10 MG INJ IV ×2 (23:00)
[2017-11-24] MEDS: morphine 2 MG INJ IV (23:22)
[2017-11-24] MEDS: NA POLYST SULFON 15 GM/60 ML BTL PO (23:23)
[2017-11-25] MEDS ORDERED: GLUCOSE GEL 15 GRAM TUBE BUCCAL (01:30)
[2017-11-25] MEDS ORDERED: DEXTROSE 50% 50 ML SYRINGE IV ×2 (01:30)
[2017-11-25] MEDS ORDERED: GLUCOSE GEL 15 GRAM TUBE PO ×2 (01:30)
[2017-11-25] MEDS ORDERED: GLUCAGON 1 MG INJ IM (01:30)
[2017-11-25] MEDS: DEXTROSE 50% 50 ML SYRINGE IV (01:48)
[2017-11-25] MEDS: ACCU-CHEK XX (01:51)
[2017-11-25 05:37] LABS: ADD MAN DIFF? NO
[2017-11-25 05:46] LABS: WHITE BLOOD COUNT 7.9 10^3/ul (4.8-10.8)
[2017-11-25 05:46] LABS: ABNORMAL IP MESSAGE 1; BASOPHIL # 0.1 10^3/ul (0.0-0.1); BASOPHILS % 1.3 % (0.0-2.0); EOSINOPHILS # 0.7 10^3/ul (0.0-0.5); EOSINOPHILS % 8.5 % (0.0-7.0); HEMATOCRIT 23.6 % (42.0-52.0); HEMOGLOBIN 7.5 g/dl (14.0-18.0); LYMPHOCYTES # 0.5 10^3/ul (0.8-2.9); LYMPHOCYTES % 5.8 % (15.0-51.0); MEAN CORPUSCULAR HGB CONC 31.8 g/dl (32.0-37.0); MEAN CORPUSCULAR VOLUME 88.1 fl (82.0-101.0); MEAN PLATELET VOLUME 11.3 fl (7.4-10.4); MONOCYTE # 0.4 10^3/ul (0.3-0.9); MONOCYTES % 5.5 % (0.0-11.0); NEUTROPHIL # 6.2 10^3/ul (1.6-7.5); NEUTROPHILS % 78.4 % (39.0-77.0); PLATELET COUNT 242 10^3/UL (140-415); POSITIVE DIFF @See below; RED BLOOD COUNT 2.68 10^6/ul (4.70-6.10); RED CELL DISTRIBUTION WIDTH 16.3 % (11.5-14.5)
[2017-11-25] MEDS: LOPERAMIDE 2 MG CAP PO ×2 (06:29→08:14)
[2017-11-25 06:40] LABS: ALANINE AMINOTRANSFERASE 10 IU/L (13-69); ALBUMIN 3.3 g/dl (3.3-4.9); ALBUMIN/GLOBULIN RATIO 0.84; ALKALINE PHOSPHATASE 84 IU/L (42-121); ANION GAP 30 (8-16); ASPARTATE AMINO TRANSFERASE 19 IU/L (15-46); BLOOD UREA NITROGEN 98 mg/dl (7-20); CALCIUM 7.7 mg/dl (8.4-10.2); CARBON DIOXIDE 20 mmol/L (21-31); CHLORIDE 99 mmol/L (97-110); GLUCOSE 97 mg/dl (70-220); MAGNESIUM 1.8 mg/dl (1.7-2.5); PHOSPHORUS 8.1 mg/dl (2.5-4.9); SODIUM 142 mmol/L (135-144); TOTAL PROTEIN 7.2 g/dl (6.1-8.1)
[2017-11-25 06:45] LABS: POTASSIUM 6.6 mmol/L (3.5-5.1)
[2017-11-25 07:10] LABS: CREATININE 16.17 mg/dl (0.61-1.24)
[2017-11-25] MEDS: INSULIN ASPART [NOVOLOG] 3 ML PEN SC ×5 (07:26→21:00)
[2017-11-25] MEDS ORDERED: SEVELAMER PO (07:35)
[2017-11-25] MEDS: LEVOTHYROXINE 88 MCG TAB PO (07:59)
[2017-11-25] MEDS: PANTOPRAZOLE (EC) 40 MG TAB PO (07:59)
[2017-11-25] MEDS: METOPROLOL (XL) 50 MG TAB PO (08:14)
[2017-11-25 08:40] LABS: HEMOGLOBIN A1C 5.2 % (0-5.9)
[2017-11-25 10:27] LABS: HEPATITIS B SURFACE ANTIGEN NEGATIVE (NEGATIVE)
[2017-11-25] MEDS ORDERED: LABETALOL HCL 20MG INJ IV (10:30)
[2017-11-25] MEDS ORDERED: SEVELAMER CARBONATE 800 MG TABLET PO (11:45)
[2017-11-25] MEDS: HEPARIN 1000 UNITS/ML 10 ML INJ CATHETER (13:03)
[2017-11-25] MEDS: QUETIAPINE 25 MG TAB PO (13:37)
[2017-11-25] MEDS: CINACALCET 30 MG TAB PO (13:37)
[2017-11-25] MEDS: SEVELAMER 400 MG TAB PO ×3 (13:37→18:05)
[2017-11-25] MEDS: ASPIRIN 81 MG TAB PO (13:37)
[2017-11-25] MEDS: FERROUS SULFATE (EC) 325 MG TAB PO ×2 (13:38→21:34)
[2017-11-25] MEDS: LISINOPRIL 5 MG TAB PO (13:38)
[2017-11-25] MEDS: APIXABAN 5 MG TABLET PO ×2 (13:39→21:34)
[2017-11-25] MEDS: QUETIAPINE 100 MG TAB PO (23:54)
[2017-11-25] MEDS: MIRTAZAPINE 15 MG TAB PO (23:54)
[2017-11-26] MEDS: ACCU-CHEK XX (02:00)
[2017-11-26] MEDS: ZOLPIDEM 5 MG TAB PO (02:39)
[2017-11-26] MEDS: LEVOTHYROXINE 88 MCG TAB PO (06:34)
[2017-11-26] MEDS: PANTOPRAZOLE (EC) 40 MG TAB PO (07:52)
[2017-11-26] MEDS: SEVELAMER 400 MG TAB PO ×2 (07:52→12:03)
[2017-11-26] MEDS: INSULIN ASPART [NOVOLOG] 3 ML PEN SC ×2 (07:53→12:00)
[2017-11-26 07:57] LABS: ADD MAN DIFF? NO
[2017-11-26 08:03] LABS: BASOPHIL # 0.1 10^3/ul (0.0-0.1); BASOPHILS % 1.2 % (0.0-2.0); EOSINOPHILS # 1.2 10^3/ul (0.0-0.5); EOSINOPHILS % 17.2 % (0.0-7.0); HEMATOCRIT 24.7 % (42.0-52.0); HEMOGLOBIN 7.9 g/dl (14.0-18.0); LYMPHOCYTES # 0.7 10^3/ul (0.8-2.9); LYMPHOCYTES % 9.4 % (15.0-51.0); MEAN CORPUSCULAR HEMOGLOBIN 28.4 pg (29.0-33.0); MEAN CORPUSCULAR VOLUME 88.8 fl (82.0-101.0); MEAN PLATELET VOLUME 10.6 fl (7.4-10.4); MONOCYTE # 0.6 10^3/ul (0.3-0.9); MONOCYTES % 8.9 % (0.0-11.0); NEUTROPHIL # 4.6 10^3/ul (1.6-7.5); PLATELET COUNT 230 10^3/UL (140-415); RED BLOOD COUNT 2.78 10^6/ul (4.70-6.10); RED CELL DISTRIBUTION WIDTH 16.1 % (11.5-14.5)
[2017-11-26 08:03] LABS: WHITE BLOOD COUNT 7.2 10^3/ul (4.8-10.8)
[2017-11-26 08:21] LABS: PHOSPHORUS 7.3 mg/dl (2.5-4.9)
[2017-11-26 08:25] LABS: ANION GAP 19 (8-16); BLOOD UREA NITROGEN 50 mg/dl (7-20); CALCIUM 7.4 mg/dl (8.4-10.2); CARBON DIOXIDE 25 mmol/L (21-31); CHLORIDE 102 mmol/L (97-110); CREATININE 10.98 mg/dl (0.61-1.24); GLUCOSE 79 mg/dl (70-220); MAGNESIUM 1.5 mg/dl (1.7-2.5); SODIUM 141 mmol/L (135-144)
[2017-11-26] MEDS: FERROUS SULFATE (EC) 325 MG TAB PO (08:47)
[2017-11-26] MEDS: CINACALCET 30 MG TAB PO (08:47)
[2017-11-26] MEDS: ASPIRIN 81 MG TAB PO (08:47)
[2017-11-26] MEDS: APIXABAN 5 MG TABLET PO (08:47)
[2017-11-26] MEDS: QUETIAPINE 25 MG TAB PO (08:48)
[2017-11-26] MEDS: LISINOPRIL 5 MG TAB PO (08:48)
[2017-11-26] MEDS: METOPROLOL (XL) 50 MG TAB PO (08:49)
[2017-11-26] MEDS: morphine LIQ (10 MG/5 ML) CUP PO (09:25)
== END 2017-11-26 13:50 | disposition home or self-care (01) | DRG 640 ==
LOC: MS3 21:17 → E/R 19:39 → MS4 11-25 17:48
PROC: 5A1D70Z Performance of Urinary Filtration, Intermittent, Less than 6 Hours Per Day (ICD-10-PCS; 2017-11-25)
PROC: 5A1D70Z Performance of Urinary Filtration, Intermittent, Less than 6 Hours Per Day (ICD-10-PCS; principal; 2017-11-26)
DX: E87.5 Hyperkalemia (principal); N18.6 End stage renal disease; J96.01 Acute respiratory failure with hypoxia; I12.0 Hypertensive chronic kidney disease with stage 5 chronic kidney disease or end stage renal disease; Z68.43 Body mass index [BMI] 50.0-59.9, adult; E11.22 Type 2 diabetes mellitus with diabetic chronic kidney disease; E66.01 Morbid (severe) obesity due to excess calories; F17.210 Nicotine dependence, cigarettes, uncomplicated; Z79.4 Long term (current) use of insulin; Z99.2 Dependence on renal dialysis; Z91.15 Patient's noncompliance with renal dialysis
CPT/HCPCS: 36415; 71045; 80048; 80053; 82962; 83036; 83735; 84100; 84484; 85025; 87340; 90935; 93005; 94664; 96365; 96375; 96376; 99291-25

== ENCOUNTER 2018-01-29 04:52 | Inpatient (IN) | payer MEDICARE, OTHER ==
[2018-01-29 06:01] LABS: ADD MAN DIFF? NO
[2018-01-29 06:21] LABS: WHITE BLOOD COUNT 5.9 10^3/ul (4.8-10.8)
[2018-01-29 06:21] LABS: ABNORMAL IP MESSAGE 1; BASOPHIL # 0.1 10^3/ul (0.0-0.1); EOSINOPHILS # 0.6 10^3/ul (0.0-0.5); EOSINOPHILS % 10.9 % (0.0-7.0); HEMATOCRIT 23.2 % (42.0-52.0); HEMOGLOBIN 7.2 g/dl (14.0-18.0); LYMPHOCYTES # 0.5 10^3/ul (0.8-2.9); MEAN CORPUSCULAR HEMOGLOBIN 29.5 pg (29.0-33.0); MEAN CORPUSCULAR VOLUME 95.1 fl (82.0-101.0); MEAN PLATELET VOLUME 11.9 fl (7.4-10.4); MONOCYTE # 0.4 10^3/ul (0.3-0.9); MONOCYTES % 6.1 % (0.0-11.0); NEUTROPHIL # 4.3 10^3/ul (1.6-7.5); NEUTROPHILS % 72.7 % (39.0-77.0); PLATELET COUNT 170 10^3/UL (140-415); POSITIVE DIFF @See below; RED BLOOD COUNT 2.44 10^6/ul (4.70-6.10)
[2018-01-29 06:39] LABS: ALANINE AMINOTRANSFERASE 10 IU/L (13-69); ALBUMIN 3.7 g/dl (3.3-4.9); ALBUMIN/GLOBULIN RATIO 0.88; ALKALINE PHOSPHATASE 85 IU/L (42-121); ANION GAP 20 (8-16); ASPARTATE AMINO TRANSFERASE 16 IU/L (15-46); BLOOD UREA NITROGEN 64 mg/dl (7-20); CALCIUM 8.6 mg/dl (8.4-10.2); CARBON DIOXIDE 25 mmol/L (21-31); CHLORIDE 98 mmol/L (97-110); CREATININE 9.13 mg/dl (0.61-1.24); GLUCOSE 90 mg/dl (70-220); POTASSIUM 5.9 mmol/L (3.5-5.1); SODIUM 137 mmol/L (135-144); TOTAL PROTEIN 7.9 g/dl (6.1-8.1)
[2018-01-29 06:50] LABS: TROPONIN-I 0.028 ng/ml (0.000-0.120)
[2018-01-29] MEDS: METHYLPREDNISOLONE 125 MG INJ IV (07:02)
[2018-01-29] MEDS: ASPIRIN 81 MG TAB PO (07:03)
[2018-01-29] MEDS: ALBUTEROL 0.5% (NEB) 2.5 MG/0.5 ML AMP INH (07:13)
[2018-01-29] MEDS: IPRATROPIUM (NEB) 0.5 MG/2.5 ML AMP INH (07:14)
[2018-01-29 07:20] LABS: B-TYPE NATRIURETIC PEPTIDE 45100 PG/ML (0-125)
[2018-01-29] MEDS: OXYCODONE/ACETAMINOPHEN (5/325) TAB PO (07:56)
[2018-01-29] MEDS ORDERED: DIPHENHYDRAMINE 50 MG CAP PO (14:00)
[2018-01-29 14:43] LABS: CREATINE KINASE 56 IU/L (23-200)
[2018-01-29 14:55] LABS: CK INDEX 6.5; CK-MB 3.66 ng/ml (0.0-2.4); TROPONIN-I 0.021 ng/ml (0.000-0.120)
[2018-01-29] MEDS: morphine 2 MG INJ IV (14:57)
[2018-01-29] MEDS: HEPARIN 1000 UNITS/ML 10 ML INJ CATHETER (16:25)
[2018-01-29] MEDS: HYDROCODONE/APAP (5/325) TAB PO (16:27)
[2018-01-29] MEDS: METOCLOPRAMIDE 5 MG TAB PO (17:45)
[2018-01-29] MEDS: EPOETIN 10000 UNITS/1 ML INJ (ESRD) SC (17:46)
[2018-01-29 20:06] LABS: CREATINE KINASE 63 IU/L (23-200)
[2018-01-29 20:19] LABS: CK INDEX 5.8; CK-MB 3.63 ng/ml (0.0-2.4); TROPONIN-I 0.023 ng/ml (0.000-0.120)
[2018-01-29] MEDS: APIXABAN 5 MG TABLET PO (20:30)
[2018-01-29] MEDS: MIRTAZAPINE 15 MG TAB PO (20:30)
[2018-01-29] MEDS: ZOLPIDEM 5 MG TAB PO (22:00)
[2018-01-29] MEDS: QUETIAPINE 100 MG TAB PO (22:30)
[2018-01-30] MEDS: ALBUTEROL/IPRATROPIUM (NEB) 3 ML AMP HHN ×3 (00:40→19:51)
[2018-01-30] MEDS: LEVOTHYROXINE 88 MCG TAB PO (06:03)
[2018-01-30] MEDS: morphine 2 MG INJ IV (06:03)
[2018-01-30] MEDS: PANTOPRAZOLE (EC) 40 MG TAB PO (07:25)
[2018-01-30] MEDS: ASPIRIN 81 MG TAB PO (08:29)
[2018-01-30] MEDS: APIXABAN 5 MG TABLET PO ×2 (08:30→20:41)
[2018-01-30] MEDS: METOPROLOL (XL) 50 MG TAB PO (08:30)
[2018-01-30] MEDS: LISINOPRIL 5 MG TAB PO (08:30)
[2018-01-30] MEDS: CINACALCET 30 MG TAB PO (08:30)
[2018-01-30] MEDS: METOCLOPRAMIDE 5 MG TAB PO ×3 (08:30→18:27)
[2018-01-30] MEDS: CHOLECALCIFEROL 1,000 UNIT TAB PO (08:35)
[2018-01-30] MEDS: HYDROCODONE/APAP (5/325) TAB PO ×2 (08:35→15:31)
[2018-01-30 09:35] LABS: ADD MAN DIFF? NO
[2018-01-30 09:37] LABS: WHITE BLOOD COUNT 5.2 10^3/ul (4.8-10.8)
[2018-01-30 09:37] LABS: ABNORMAL IP MESSAGE 1; BASOPHILS % 0.8 % (0.0-2.0); EOSINOPHILS # 0.4 10^3/ul (0.0-0.5); EOSINOPHILS % 7.9 % (0.0-7.0); HEMATOCRIT 24.2 % (42.0-52.0); HEMOGLOBIN 7.4 g/dl (14.0-18.0); LYMPHOCYTES # 0.3 10^3/ul (0.8-2.9); LYMPHOCYTES % 4.8 % (15.0-51.0); MEAN CORPUSCULAR HEMOGLOBIN 29.4 pg (29.0-33.0); MEAN CORPUSCULAR HGB CONC 30.6 g/dl (32.0-37.0); MEAN PLATELET VOLUME 10.9 fl (7.4-10.4); MONOCYTE # 0.4 10^3/ul (0.3-0.9); MONOCYTES % 7.6 % (0.0-11.0); NEUTROPHIL # 4.1 10^3/ul (1.6-7.5); NEUTROPHILS % 78.7 % (39.0-77.0); PLATELET COUNT 181 10^3/UL (140-415); POSITIVE DIFF @See below; RED BLOOD COUNT 2.52 10^6/ul (4.70-6.10); RED CELL DISTRIBUTION WIDTH 17.3 % (11.5-14.5)
[2018-01-30 10:06] LABS: ANION GAP 14 (8-16); BLOOD UREA NITROGEN 37 mg/dl (7-20); CALCIUM 8.6 mg/dl (8.4-10.2); CARBON DIOXIDE 31 mmol/L (21-31); CHLORIDE 100 mmol/L (97-110); CREATININE 6.22 mg/dl (0.61-1.24); GLUCOSE 129 mg/dl (70-220); MAGNESIUM 1.7 mg/dl (1.7-2.5); PHOSPHORUS 4.9 mg/dl (2.5-4.9); POTASSIUM 5.3 mmol/L (3.5-5.1); SODIUM 140 mmol/L (135-144)
[2018-01-30] MEDS ORDERED: ONDANSETRON 4 MG INJ IV (13:00)
[2018-01-30] MEDS: SENNA TAB PO (20:42)
[2018-01-30] MEDS: MIRTAZAPINE 15 MG TAB PO (20:42)
[2018-01-30] MEDS ORDERED: QUETIAPINE 100 MG TAB PO (22:20)
[2018-01-30] MEDS: QUETIAPINE 100 MG TAB PO (22:42)
[2018-01-30] MEDS: ZOLPIDEM 5 MG TAB PO (22:42)
[2018-01-31] MEDS: HEPARIN 1000 UNITS/ML 10 ML INJ CATHETER (06:13)
[2018-01-31] MEDS: LEVOTHYROXINE 88 MCG TAB PO (07:00)
[2018-01-31] MEDS: CHOLECALCIFEROL 1,000 UNIT TAB PO (09:30)
[2018-01-31] MEDS: ASPIRIN 81 MG TAB PO (09:30)
[2018-01-31] MEDS: CINACALCET 30 MG TAB PO (09:30)
[2018-01-31] MEDS: SENNA TAB PO ×2 (09:30→20:03)
[2018-01-31] MEDS: PANTOPRAZOLE (EC) 40 MG TAB PO (09:30)
[2018-01-31] MEDS: APIXABAN 5 MG TABLET PO ×2 (09:30→20:03)
[2018-01-31] MEDS: LISINOPRIL 5 MG TAB PO (09:31)
[2018-01-31] MEDS: METOCLOPRAMIDE 5 MG TAB PO ×3 (09:31→18:27)
[2018-01-31] MEDS: METOPROLOL (XL) 50 MG TAB PO (09:31)
[2018-01-31] MEDS: ALBUTEROL/IPRATROPIUM (NEB) 3 ML AMP HHN ×2 (10:14→17:08)
[2018-01-31 11:27] LABS: ADD MAN DIFF? NO
[2018-01-31 11:31] LABS: ABNORMAL IP MESSAGE 1; BASOPHILS % 0.9 % (0.0-2.0); EOSINOPHILS # 0.5 10^3/ul (0.0-0.5); EOSINOPHILS % 10.7 % (0.0-7.0); HEMATOCRIT 22.4 % (42.0-52.0); LYMPHOCYTES # 0.4 10^3/ul (0.8-2.9); LYMPHOCYTES % 8.1 % (15.0-51.0); MEAN CORPUSCULAR HEMOGLOBIN 29.4 pg (29.0-33.0); MEAN CORPUSCULAR HGB CONC 30.4 g/dl (32.0-37.0); MONOCYTE # 0.4 10^3/ul (0.3-0.9); MONOCYTES % 9.6 % (0.0-11.0); NEUTROPHIL # 3.2 10^3/ul (1.6-7.5); NEUTROPHILS % 70.5 % (39.0-77.0); PLATELET COUNT 150 10^3/UL (140-415); POSITIVE DIFF @See below; RED BLOOD COUNT 2.31 10^6/ul (4.70-6.10); RED CELL DISTRIBUTION WIDTH 17.4 % (11.5-14.5)
[2018-01-31 11:31] LABS: WHITE BLOOD COUNT 4.6 10^3/ul (4.8-10.8)
[2018-01-31 11:36] LABS: HEMOGLOBIN 6.8 g/dl (14.0-18.0)
[2018-01-31 11:52] LABS: ANION GAP 9 (8-16); BLOOD UREA NITROGEN 19 mg/dl (7-20); CALCIUM 7.8 mg/dl (8.4-10.2); CARBON DIOXIDE 32 mmol/L (21-31); CHLORIDE 100 mmol/L (97-110); CREATININE 3.86 mg/dl (0.61-1.24); GLUCOSE 112 mg/dl (70-220); MAGNESIUM 1.7 mg/dl (1.7-2.5); PHOSPHORUS 3.4 mg/dl (2.5-4.9); POTASSIUM 4.3 mmol/L (3.5-5.1); SODIUM 137 mmol/L (135-144)
[2018-01-31] MEDS: SOD CHLORIDE 0.9% 250 ML IV* (12:04)
[2018-01-31 12:22] LABS: HEPATITIS B SURFACE ANTIGEN NEGATIVE (NEGATIVE)
[2018-01-31 12:38] LABS: ANISOCYTOSIS 2+ (0-0); BAND NEUTROPHILS % (M) 2 % (0-4); BASOPHIL #M 0.1 10^3/ul (0.0-0.0); BASOPHILS % (M) 3 % (0-2); EOSINOPHILS % (M) 13 % (0-7); ERYTHROBLAST% (NRBC) (M) 1 % (0-0); HYPOCHROMASIA 1+ (0-0); LYMPHOCYTES #M 0.5 10^3/ul (0.8-2.9); LYMPHOCYTES % (M) 11 % (15-51); MONOCYTE #M 0.1 10^3/ul (0.3-0.9); MONOCYTES % (M) 3 % (0-11); PLATELET ESTIMATE NORMAL; POIKILOCYTOSIS 1+ (0-0); POLYCHROMASIA 1+ (0-0); REACTIVE LYMPHOCYTES% (M) 1 % (0-0); SCHISTOCYTES 1+ (0-0); SEG NEUT #M 3.1 10^3/ul (1.6-7.5); SEGMENTED NEUTROPHILS (M) % 67 % (39-77); SMUDGE%M 9 % (0-0)
[2018-01-31] MEDS: HYDROCODONE/APAP (5/325) TAB PO ×2 (12:51→20:03)
[2018-01-31 14:55] LABS: IMMEDIATE SPIN CROSSMATCH 1 1
[2018-01-31] MEDS ORDERED: ONDANSETRON 4 MG INJ IV (15:00)
[2018-01-31] MEDS: EPOETIN 10000 UNITS/1 ML INJ (ESRD) SC (18:27)
[2018-01-31] MEDS: MIRTAZAPINE 15 MG TAB PO (20:03)
[2018-01-31] MEDS: QUETIAPINE 100 MG TAB PO (23:47)
[2018-01-31] MEDS: ZOLPIDEM 5 MG TAB PO (23:47)
[2018-02-01] MEDS: ALBUTEROL/IPRATROPIUM (NEB) 3 ML AMP HHN ×3 (02:03→12:20)
[2018-02-01] MEDS: LEVOTHYROXINE 88 MCG TAB PO (06:30)
[2018-02-01] MEDS: PANTOPRAZOLE (EC) 40 MG TAB PO (06:30)
[2018-02-01] MEDS: CINACALCET 30 MG TAB PO (08:58)
[2018-02-01] MEDS: CHOLECALCIFEROL 1,000 UNIT TAB PO (08:58)
[2018-02-01] MEDS: ASPIRIN 81 MG TAB PO (08:58)
[2018-02-01] MEDS: METOCLOPRAMIDE 5 MG TAB PO ×3 (08:58→17:42)
[2018-02-01] MEDS: SENNA TAB PO ×2 (08:58→20:26)
[2018-02-01] MEDS: APIXABAN 5 MG TABLET PO ×2 (08:58→20:26)
[2018-02-01] MEDS: HYDROCODONE/APAP (5/325) TAB PO ×3 (09:00→17:42)
[2018-02-01] MEDS: LISINOPRIL 5 MG TAB PO (09:01)
[2018-02-01] MEDS: METOPROLOL (XL) 50 MG TAB PO (09:01)
[2018-02-01 09:42] LABS: ADD MAN DIFF? NO
[2018-02-01 09:53] LABS: ABNORMAL IP MESSAGE 1; BASOPHIL # 0.1 10^3/ul (0.0-0.1); EOSINOPHILS # 0.4 10^3/ul (0.0-0.5); EOSINOPHILS % 6.3 % (0.0-7.0); HEMATOCRIT 26.9 % (42.0-52.0); HEMOGLOBIN 8.3 g/dl (14.0-18.0); LYMPHOCYTES # 0.5 10^3/ul (0.8-2.9); LYMPHOCYTES % 8.3 % (15.0-51.0); MEAN CORPUSCULAR HEMOGLOBIN 30.1 pg (29.0-33.0); MEAN CORPUSCULAR HGB CONC 30.9 g/dl (32.0-37.0); MEAN CORPUSCULAR VOLUME 97.5 fl (82.0-101.0); MEAN PLATELET VOLUME 11.4 fl (7.4-10.4); MONOCYTE # 0.5 10^3/ul (0.3-0.9); MONOCYTES % 7.5 % (0.0-11.0); NEUTROPHIL # 4.8 10^3/ul (1.6-7.5); NEUTROPHILS % 76.7 % (39.0-77.0); PLATELET COUNT 169 10^3/UL (140-415); POSITIVE DIFF @See below; RED BLOOD COUNT 2.76 10^6/ul (4.70-6.10); RED CELL DISTRIBUTION WIDTH 17.8 % (11.5-14.5)
[2018-02-01 09:53] LABS: WHITE BLOOD COUNT 6.2 10^3/ul (4.8-10.8)
[2018-02-01] MEDS: morphine 2 MG INJ IV ×2 (10:01→20:28)
[2018-02-01 10:18] LABS: ANION GAP 15 (8-16); BLOOD UREA NITROGEN 30 mg/dl (7-20); CALCIUM 8.2 mg/dl (8.4-10.2); CARBON DIOXIDE 29 mmol/L (21-31); CHLORIDE 101 mmol/L (97-110); CREATININE 5.66 mg/dl (0.61-1.24); GLUCOSE 91 mg/dl (70-220); MAGNESIUM 1.7 mg/dl (1.7-2.5); PHOSPHORUS 4.6 mg/dl (2.5-4.9); POTASSIUM 4.9 mmol/L (3.5-5.1); SODIUM 140 mmol/L (135-144)
[2018-02-01] MEDS: CARISOPRODOL 350 MG TAB PO (12:32)
[2018-02-01 13:04] LABS: TROPONIN-I 0.022 ng/ml (0.000-0.120)
[2018-02-01] MEDS: MIRTAZAPINE 15 MG TAB PO (20:26)
[2018-02-01] MEDS: ZOLPIDEM 5 MG TAB PO (21:40)
[2018-02-01] MEDS: QUETIAPINE 100 MG TAB PO (21:40)
[2018-02-02] MEDS: HEPARIN 1000 UNITS/ML 10 ML INJ CATHETER (02:17)
[2018-02-02] MEDS: CARISOPRODOL 350 MG TAB PO ×3 (03:34→20:10)
[2018-02-02] MEDS: PANTOPRAZOLE (EC) 40 MG TAB PO (06:26)
[2018-02-02] MEDS: LEVOTHYROXINE 88 MCG TAB PO (06:26)
[2018-02-02] MEDS: HYDROCODONE/APAP (5/325) TAB PO ×2 (08:45→17:39)
[2018-02-02] MEDS: ASPIRIN 81 MG TAB PO (08:45)
[2018-02-02] MEDS: CINACALCET 30 MG TAB PO (08:46)
[2018-02-02] MEDS: APIXABAN 5 MG TABLET PO ×2 (08:46→20:10)
[2018-02-02] MEDS: SENNA TAB PO ×2 (08:46→20:10)
[2018-02-02] MEDS: METOPROLOL (XL) 50 MG TAB PO (08:47)
[2018-02-02] MEDS: CHOLECALCIFEROL 1,000 UNIT TAB PO (08:47)
[2018-02-02] MEDS: METOCLOPRAMIDE 5 MG TAB PO ×3 (08:47→17:39)
[2018-02-02] MEDS: LISINOPRIL 5 MG TAB PO (08:48)
[2018-02-02 09:00] LABS: ADD MAN DIFF? NO
[2018-02-02 09:03] LABS: ABNORMAL IP MESSAGE 1; BASOPHIL # 0.1 10^3/ul (0.0-0.1); BASOPHILS % 0.8 % (0.0-2.0); EOSINOPHILS # 0.6 10^3/ul (0.0-0.5); HEMATOCRIT 26.7 % (42.0-52.0); HEMOGLOBIN 8.2 g/dl (14.0-18.0); LYMPHOCYTES # 0.6 10^3/ul (0.8-2.9); LYMPHOCYTES % 9.3 % (15.0-51.0); MEAN CORPUSCULAR HEMOGLOBIN 29.5 pg (29.0-33.0); MEAN CORPUSCULAR HGB CONC 30.7 g/dl (32.0-37.0); MEAN PLATELET VOLUME 11.2 fl (7.4-10.4); MONOCYTE # 0.5 10^3/ul (0.3-0.9); MONOCYTES % 7.5 % (0.0-11.0); NEUTROPHIL # 4.6 10^3/ul (1.6-7.5); NEUTROPHILS % 73.2 % (39.0-77.0); PLATELET COUNT 188 10^3/UL (140-415); POSITIVE DIFF @See below; RED BLOOD COUNT 2.78 10^6/ul (4.70-6.10); RED CELL DISTRIBUTION WIDTH 17.2 % (11.5-14.5)
[2018-02-02 09:03] LABS: WHITE BLOOD COUNT 6.2 10^3/ul (4.8-10.8)
[2018-02-02 09:35] LABS: ALANINE AMINOTRANSFERASE 12 IU/L (13-69); ALBUMIN 3.4 g/dl (3.3-4.9); ALBUMIN/GLOBULIN RATIO 0.85; ALKALINE PHOSPHATASE 92 IU/L (42-121); ANION GAP 11 (8-16); ASPARTATE AMINO TRANSFERASE 14 IU/L (15-46); BILIRUBIN,INDIRECT 0.2 mg/dl (0-1.1); BILIRUBIN,TOTAL 0.2 mg/dl (0.2-1.3); BLOOD UREA NITROGEN 20 mg/dl (7-20); CALCIUM 8.3 mg/dl (8.4-10.2); CARBON DIOXIDE 33 mmol/L (21-31); CHLORIDE 99 mmol/L (97-110); CREATININE 4.15 mg/dl (0.61-1.24); GLUCOSE 94 mg/dl (70-220); MAGNESIUM 1.6 mg/dl (1.7-2.5); POTASSIUM 4.4 mmol/L (3.5-5.1); SODIUM 139 mmol/L (135-144); TOTAL PROTEIN 7.4 g/dl (6.1-8.1)
[2018-02-02 10:13] LABS: PHOSPHORUS 3.8 mg/dl (2.5-4.9)
[2018-02-02] MEDS: ALBUTEROL/IPRATROPIUM (NEB) 3 ML AMP HHN (13:53)
[2018-02-02] MEDS: MIRTAZAPINE 15 MG TAB PO (20:10)
[2018-02-02] MEDS: morphine 2 MG INJ IV (20:55)
[2018-02-02] MEDS: ZOLPIDEM 5 MG TAB PO (22:18)
[2018-02-03] MEDS: HYDROCODONE/APAP (5/325) TAB PO (00:21)
[2018-02-03] MEDS: morphine 2 MG INJ IV (01:33)
[2018-02-03] MEDS: QUETIAPINE 100 MG TAB PO (03:59)
[2018-02-03] MEDS: ALBUTEROL/IPRATROPIUM (NEB) 3 ML AMP HHN (04:18)
[2018-02-03] MEDS: LORAZEPAM 2 MG INJ IV (04:59)
[2018-02-03] MEDS: LEVOTHYROXINE 88 MCG TAB PO (07:30)
[2018-02-03] MEDS: APIXABAN 5 MG TABLET PO (10:14)
[2018-02-03] MEDS: CINACALCET 30 MG TAB PO (10:15)
[2018-02-03] MEDS: METOPROLOL (XL) 50 MG TAB PO (10:15)
[2018-02-03] MEDS: SENNA TAB PO (10:16)
[2018-02-03] MEDS: ASPIRIN 81 MG TAB PO (10:16)
[2018-02-03] MEDS: METOCLOPRAMIDE 5 MG TAB PO ×3 (10:17→17:55)
[2018-02-03] MEDS: PANTOPRAZOLE (EC) 40 MG TAB PO (10:18)
[2018-02-03] MEDS: CHOLECALCIFEROL 1,000 UNIT TAB PO (10:18)
[2018-02-03] MEDS: LISINOPRIL 5 MG TAB PO (10:19)
[2018-02-03] MEDS: hydrALAzine 20 MG INJ IV (13:36)
[2018-02-03] MEDS: LORAZEPAM 1 MG TAB PO (13:36)
[2018-02-03] MEDS: EPOETIN 10000 UNITS/1 ML INJ (ESRD) SC (17:00)
== END 2018-02-03 18:38 | disposition home or self-care (01) | DRG 291 ==
LOC: E/R 04:52 → TEL 07:37
PROC: 5A1D70Z Performance of Urinary Filtration, Intermittent, Less than 6 Hours Per Day (ICD-10-PCS; principal; 2018-01-29)
PROC: 30233N1 Transfusion of Nonautologous Red Blood Cells into Peripheral Vein, Percutaneous Approach (ICD-10-PCS; 2018-01-31)
DX: I13.2 Hypertensive heart and chronic kidney disease with heart failure and with stage 5 chronic kidney disease, or end stage renal disease (principal); J96.01 Acute respiratory failure with hypoxia; I50.43 Acute on chronic combined systolic (congestive) and diastolic (congestive) heart failure; N18.6 End stage renal disease; J44.1 Chronic obstructive pulmonary disease with (acute) exacerbation; E11.22 Type 2 diabetes mellitus with diabetic chronic kidney disease; Z99.2 Dependence on renal dialysis; Z91.15 Patient's noncompliance with renal dialysis; E87.5 Hyperkalemia; G89.4 Chronic pain syndrome; E03.9 Hypothyroidism, unspecified; R34 Anuria and oliguria
CPT/HCPCS: 36415; 36430; 71045; 80048; 80053; 82550; 82553; 83735; 83880; 84100; 84484; 85025; 86850; 86900; 86901; 86920; 87081; 87340; 90935; 93005; 94640; 94644; 94664; 96374; 99285-25

== ENCOUNTER 2018-02-08 22:17 | Emergency (ER) | payer MEDICARE, OTHER ==
[2018-02-08] MEDS: NITROGLYCERIN 50 MG/D5W (PMX) 250 ML IV (22:32)
[2018-02-08] MEDS: ALBUTEROL 0.5% (NEB) 2.5 MG/0.5 ML AMP INH (22:38)
[2018-02-08] MEDS: IPRATROPIUM (NEB) 0.5 MG/2.5 ML AMP INH (22:38)
[2018-02-08 22:42] LABS: ADD MAN DIFF? NO
[2018-02-08 22:48] LABS: ABNORMAL IP MESSAGE 1; BASOPHIL # 0.1 10^3/ul (0.0-0.1); BASOPHILS % 0.6 % (0.0-2.0); EOSINOPHILS # 0.8 10^3/ul (0.0-0.5); EOSINOPHILS % 10.5 % (0.0-7.0); HEMATOCRIT 25.8 % (42.0-52.0); LYMPHOCYTES # 0.4 10^3/ul (0.8-2.9); LYMPHOCYTES % 5.6 % (15.0-51.0); MEAN CORPUSCULAR HEMOGLOBIN 29.1 pg (29.0-33.0); MEAN CORPUSCULAR VOLUME 93.8 fl (82.0-101.0); MEAN PLATELET VOLUME 11.9 fl (7.4-10.4); MONOCYTE # 0.4 10^3/ul (0.3-0.9); MONOCYTES % 5.1 % (0.0-11.0); NEUTROPHIL # 6.1 10^3/ul (1.6-7.5); NEUTROPHILS % 78.1 % (39.0-77.0); PLATELET COUNT 187 10^3/UL (140-415); POSITIVE DIFF @See below; RED BLOOD COUNT 2.75 10^6/ul (4.70-6.10)
[2018-02-08 22:48] LABS: WHITE BLOOD COUNT 7.8 10^3/ul (4.8-10.8)
[2018-02-08 23:00] LABS: INR 1.48; PROTIME 18.2 Sec (11.9-14.9); PT RATIO 1.4
[2018-02-08 23:01] LABS: PARTIAL THROMBOPLASTIN TIME 34.6 Sec (25.0-35.0)
[2018-02-08 23:07] LABS: LACTIC ACID 1.8 mmol/L (0.5-2.0)
[2018-02-08 23:09] LABS: ALANINE AMINOTRANSFERASE 11 IU/L (13-69); ALBUMIN 3.7 g/dl (3.3-4.9); ALKALINE PHOSPHATASE 79 IU/L (42-121); ANION GAP 22 (8-16); ASPARTATE AMINO TRANSFERASE 22 IU/L (15-46); BLOOD UREA NITROGEN 79 mg/dl (7-20); CALCIUM 8.2 mg/dl (8.4-10.2); CARBON DIOXIDE 23 mmol/L (21-31); CHLORIDE 100 mmol/L (97-110); CREATININE 12.45 mg/dl (0.61-1.24); GLUCOSE 99 mg/dl (70-220); SODIUM 139 mmol/L (135-144); TOTAL PROTEIN 8.3 g/dl (6.1-8.1)
[2018-02-08 23:20] LABS: TROPONIN-I 0.049 ng/ml (0.000-0.120)
[2018-02-08] MEDS: NA BICARBONATE 8.4% 50 ML SYG IV (23:29)
[2018-02-08] MEDS: CA CHLORIDE 10% 10 ML SYRINGE IV (23:29)
[2018-02-08] MEDS: ONDANSETRON 4 MG INJ IV (23:29)
[2018-02-08] MEDS ORDERED: ACETAMINOPHEN 325 MG TAB PO (23:30)
[2018-02-08] MEDS: morphine 4 MG/ML VIAL IV (23:30)
[2018-02-08 23:37] LABS: B-TYPE NATRIURETIC PEPTIDE 58400 PG/ML (0-125)
[2018-02-08 23:41] LABS: AADO2 Arterial 58.2 mmHg (7.0-24.0); Allen Test ACCEPTAB; Arterial Base Excess 2.8 mmol/L (-3.0-3); Arterial Blood Gas Oxygen Sat 99.4 mmHG (95.0-98.0); Arterial COHb 2.5 % (0.0-3.0); Arterial Fraction of Oxyhgb 96.8 % (93.0-99.0); Arterial HCO3 27.4 mmol/L (22.0-26.0); Arterial MetHb 0.1 % (0.0-1.5); Arterial Total Hemglobin 7.7 g/dl (12.0-18.0); Arterial pCO2 42.4 mmhg (35-45); Blood Gas IEPAP 18/5; Blood Gas PS 13; MODE MASK - BIPAP; Site Right Radial
[2018-02-09] MEDS ORDERED: ACETAMINOPHEN 325 MG TAB PO (00:30)
[2018-02-09] MEDS ORDERED: DIPHENHYDRAMINE 50 MG CAP PO (00:30)
[2018-02-09] MEDS ORDERED: ALBUTEROL/IPRATROPIUM (NEB) 3 ML AMP HHN (00:30)
[2018-02-09] MEDS ORDERED: HYDROCODONE/APAP (5/325) TAB PO (00:30)
[2018-02-09] MEDS ORDERED: ONDANSETRON 4 MG INJ IV (00:30)
[2018-02-09] MEDS ORDERED: NACL 0.9% 3 ML SYG IV (00:30)
[2018-02-09] MEDS ORDERED: LEVOTHYROXINE 88 MCG TAB PO (07:00)
[2018-02-09] MEDS ORDERED: PANTOPRAZOLE (EC) 40 MG TAB PO (07:00)
[2018-02-09] MEDS ORDERED: HEPARIN 5,000 UNIT/0.5 ML VIAL SC (09:00)
[2018-02-09] MEDS ORDERED: FERROUS SULFATE (EC) 325 MG TAB PO (09:00)
[2018-02-09] MEDS ORDERED: CINACALCET 30 MG TAB PO (09:00)
[2018-02-09] MEDS ORDERED: APIXABAN 5 MG TABLET PO (09:00)
[2018-02-09] MEDS ORDERED: METOPROLOL (XL) 50 MG TAB PO (09:00)
[2018-02-09] MEDS ORDERED: CHOLECALCIFEROL 1,000 UNIT TAB PO (09:00)
[2018-02-09] MEDS ORDERED: LISINOPRIL 5 MG TAB PO (09:00)
[2018-02-09] MEDS ORDERED: ASPIRIN 81 MG TAB PO (09:00)
[2018-02-09] MEDS ORDERED: MIRTAZAPINE 15 MG TAB PO (21:00)
[2018-02-09] MEDS ORDERED: QUETIAPINE 100 MG TAB PO (21:00)
== END 2018-02-09 03:00 | disposition left against medical advice (07) ==
LOC: E/R 02-09 03:00
DX: J96.00 Acute respiratory failure, unspecified whether with hypoxia or hypercapnia (principal); J81.1 Chronic pulmonary edema; I12.0 Hypertensive chronic kidney disease with stage 5 chronic kidney disease or end stage renal disease; N18.6 End stage renal disease; E11.22 Type 2 diabetes mellitus with diabetic chronic kidney disease; I50.20 Unspecified systolic (congestive) heart failure; J44.9 Chronic obstructive pulmonary disease, unspecified; Z99.2 Dependence on renal dialysis; Z87.891 Personal history of nicotine dependence; Z79.82 Long term (current) use of aspirin
CPT/HCPCS: 36415; 36600; 71045; 80053; 82803; 83605; 83880; 84484; 85025; 85610; 85730; 87040; 93005; 94644; 94660; 96374; 96375; 99291-25